=== PATIENT | female | born 1955 | race Caucasian/White ===

== ENCOUNTER 2017-08-25 14:54 | Inpatient (IN) | payer SELFPAY ==
[~2017-08-25] VITALS: Ht 142.2 cm; Wt 44.7 kg
[2017-08-25] VITALS (7 sets, daily range): BP systolic 85–122; BP diastolic 51–68
[~2017-08-25 14:54] MED LIST: ATEN50TA PO; ATENOLOL; DOXY100T19 PO; HCTZ; HYDR-3816 PO; HYDR-756 PO; HYDR25TA4 PO; HYDROCODONE
--- OUTSIDE RECORDS SUMMARY | 2017-08-25 15:07 | XMS REPORT ---
Author CHRISTIAN Lundy [facility] eClinicalWorks Address Unknown Phone Unavailable Care Team Providers Care Instant Print Operator Name Role Phone CHRISTIAN THOMAS CP Unavailable Allergies, Adverse Reactions, Alerts Substance Reaction Event Type N.K.D.A. Info Not Available Non Drug Allergy Problems Problem Type Condition Code Onset Dates Condition Status Assessment LLQ pain R10.32 Active Assessment Encounter for immunization Z23 Active Problem Unspecified arthropathy, site unspecified 716.90 Active Problem Depressive disorder, not elsewhere classified 311 Active Problem Back pain M54.9 Active Assessment Back pain M54.9 Active Assessment Hypokalemia E87.6 Active Problem Unspecified essential hypertension 401.9 Active Problem Postmenopausal bleeding N95.0 Active Medications Medication Code System Code Instructions Start Date End Date Status Dosage Multivitamins [facility] [address] Orally not defined Hydrocodone-Acetaminophen [facility] [address]-43 7.5-325 MG Orally November 26, 2014 1 tablet by Oral route every 4 hours PRN Zoloft [facility] [address]-73 25 MG May 04, 2014 1 tablet by Oral route 1 time per day Atenolol [facility] 46477647475 50 MG TAKE ONE TABLET BY MOUTH DAILY Hydrochlorothiazide [facility] [address]-16 25 MG TAKE ONE TABLET BY MOUTH DAILY Procedures Procedure Coding System Code Date FLUZONE QUAD (3 & UP)-SINGLE DOSE VIAL-SANOFI PASTEUR-2014 CPT-4 17127 Sep 27, 2015 SINGLE IMMUNIZATION ADMIN CPT-4 71814 Sep 27, 2015 BASIC METABOLIC PANEL CPT-4 85199 Sep 27, 2015 VENIPUNCT, ROUTINE* CPT-4 77654 Sep 27, 2015 Office Visit, Est Pt., Level 4 CPT-4 51846 Sep 27, 2015 Vital Signs Date/Time: Sep 27, 2015 Temperature 98.0 F Weight 90.8 lbs Height 56 in BMI 20.35 Index Blood Pressure Diastolic 88 mmHg Blood Pressure Systolic 184 mmHg Cardiac Monitoring Heart Rate 64 bpm Results Name Result Date Reference Range Unit Abnormality Flag ROUTINE VENIPUNCTURE BMP ----Calcium, Serum 9.9 43579735 8.7-10.3 mg/dL ----Sodium, Serum 131 [id number] 134-144 mmol/L L ----BUN/Creatinine Ratio 22 20150927 11-26 ----Chloride, Serum 95 71390333 97-108 mmol/L L ----Carbon Dioxide, Total 20 20150927 18-29 mmol/L ----Potassium, Serum 4.7 61426243 3.5-5.2 mmol/L ----eGFR If NonAfricn Am 67 [id number] >59 mL/min/1.73 ----eGFR If Africn Am 78 [id number] >59 mL/min/1.73 ----BUN 20 44904702 8-27 mg/dL ----Creatinine, Serum 0.92 [id number] 0.57-1.00 mg/dL ----Glucose, Serum 102 [id number] 65-99 mg/dL H Immunizations Vaccine Administration Date FLUEFRAIN QUAD (3 & UP)-SINGLE DOSE VIAL-SANOFI PASTEUR-2014Sep 27, 2015 Summary Purpose eClinicalWorks Submission
--- OUTSIDE RECORDS SUMMARY | 2017-08-25 15:07 | XMS REPORT ---
Author Author CHRISTIAN THOMAS [facility] eClinicalWorks Address Unknown Phone Unavailable Care Team Providers Care Tool Supervisor Name Role Phone CHRISTIAN THOMAS CP Unavailable Allergies No Known Allergies Problems Problem Type Condition Code Onset Dates Condition Status Problem Postmenopausal bleeding 627.1 Active Problem Counseling on substance use and abuse V65.42 Active Problem Routine gynecological examination V72.31 Active Problem Wheezing 786.07 Active Problem Allergic rhinitis, cause unspecified 477.9 Active Problem Unspecified arthropathy, site unspecified 716.90 Active Problem Depressive disorder, not elsewhere classified 311 Active Problem Special screening for malignant neoplasms, colon V76.51 Active Problem Need for prophylactic vaccination and inoculation, Influenza V04.81 Active Problem Fracture in accidental fall, cause unspecified E887 Active Problem Unspecified essential hypertension 401.9 Active Problem Screening for malignant neoplasm of the cervix V76.2 Active Problem Unspecified local infection of skin and subcutaneous tissue 686.9 Active Problem Special screening examination, human papillomavirus [HPV] V73.81 Active Problem Dermatophytosis of nail 110.1 Active Problem Unspecified breast screening V76.10 Active Medications Medication Code System Code Instructions Start Date End Date Status Dosage Hydrocodone-Acetaminophen [facility] [address]-11 7.5-325 MG Orally November 26, 2014 1 tablet by Oral route every 4 hours PRN Results No Known Results Summary Purpose eClinicalWorks Submission
--- OUTSIDE RECORDS SUMMARY | 2017-08-25 15:07 | XMS REPORT ---
Author Author CHRISTIAN THOMAS [facility] Address [address] [place] [address] Care Team Providers Care Chemical Educator Name Role Phone CHRISTIAN THOMAS Unavailable PROBLEMS Type Condition ICD9-CM Code TRR33-JA Code Onset Dates Condition Status SNOMED Code Problem Postmenopausal bleeding N95.0 Active 58992735 Problem Gastroesophageal reflux disease, esophagitis presence not specified K21.9 Active 114858324 Problem Reactive depression F32.9 Active 77715203 Problem Essential hypertension I10 Active 55497652 Problem Back pain M54.9 Active 474648147 Problem Elevated cholesterol E78.00 Active 40787213 Problem Cigarette nicotine dependence without complication F17.210 Active 08643184 ALLERGIES No Information SOCIAL HISTORY Never Assessed PLAN OF CARE VITAL SIGNS MEDICATIONS Medication Instructions Dosage Frequency Start Date End Date Duration Status Hydrocodone-Acetaminophen 7.5-325 MG Orally every 4 hours 1 tablet as needed 4h Nov, 28 days Active RESULTS No Results PROCEDURES No Known procedures IMMUNIZATIONS No Known Immunizations MEDICAL (GENERAL) HISTORY Type Description Date Medical History rheumatoid arthritis Medical History Arthritis Medical History polio Medical History hypertension Medical History depression Medical History ulcers as a child Surgical History cholecystectomy Surgical History Right shoulder Surgical History DnC Hospitalization History surgeries
--- OUTSIDE RECORDS SUMMARY | 2017-08-25 15:07 | XMS REPORT ---
Author Author CHRISTIAN THOMAS [facility] eClinicalWorks Address Unknown Phone Unavailable Care Team Providers Care Lock Installer Name Role Phone CHRISTIAN THOMAS CP Unavailable [...] Start Date End Date Status Dosage Hydrocodone-Acetaminophen [facility] [address]-71 7.5-325 MG Orally November 26, 2014 1 tablet by Oral route every 4 hours PRN Results No Known Results Summary Purpose eClinicalWorks Submission
--- OUTSIDE RECORDS SUMMARY | 2017-08-25 15:07 | XMS REPORT ---
Author Author CHRISTIAN THOMAS [facility] Address [address] [place] [address] Care Team Providers Care Motor Expert Name Role Phone CHRISTIAN THOMAS Unavailable PROBLEMS Type Condition ICD9-CM Code LDP34-DM Code Onset Dates Condition Status SNOMED Code Problem Postmenopausal bleeding N95.0 Active 97100381 Problem Gastroesophageal reflux disease, esophagitis presence not specified K21.9 Active 955014918 Problem Reactive depression F32.9 Active 09512281 Problem Essential hypertension I10 Active 85963107 Problem Back pain M54.9 Active 464785676 Problem Elevated cholesterol E78.00 Active 81832564 Problem Cigarette nicotine dependence without complication F17.210 Active 55266786 ALLERGIES No Information SOCIAL HISTORY Never Assessed PLAN OF CARE VITAL SIGNS MEDICATIONS Medication Instructions Dosage Frequency Start Date End Date Duration Status Hydrocodone-Acetaminophen 7.5-325 MG Orally every 4 hours 1 tablet as needed 4h January, 28 days Active RESULTS No Results PROCEDURES No Known procedures IMMUNIZATIONS No Known Immunizations MEDICAL (GENERAL) HISTORY Type Description Date Medical History rheumatoid arthritis Medical History Arthritis Medical History polio Medical History hypertension Medical History depression Medical History ulcers as a child Surgical History cholecystectomy Surgical History Right shoulder Surgical History DnC Hospitalization History surgeries
--- OUTSIDE RECORDS SUMMARY | 2017-08-25 15:07 | XMS REPORT ---
Author Author CHRISTIAN THOMAS [facility] Address [address] [place] [address] Care Team Providers Care Sports Marketing Coordinator Name Role Phone CHRISTIAN THOMAS Unavailable PROBLEMS Type Condition ICD9-CM Code FVF89-YT Code Onset Dates Condition Status SNOMED Code Problem Postmenopausal bleeding N95.0 Active 53877432 Problem Gastroesophageal reflux disease, esophagitis presence not specified K21.9 Active 702344727 Problem Reactive depression F32.9 Active 74183943 Problem Essential hypertension I10 Active 66341974 Problem Back pain M54.9 Active 636096747 Problem Elevated cholesterol E78.00 Active 44902736 Problem Cigarette nicotine dependence without complication F17.210 Active 10654027 ALLERGIES No Information SOCIAL HISTORY Never Assessed PLAN OF CARE VITAL SIGNS MEDICATIONS Unknown Medications RESULTS Name Result Date Reference Range LIPID PANEL 2017-02-22 Cholesterol, Total 182 100-199 Triglycerides 126 0-149 HDL Cholesterol 55 >39 VLDL Cholesterol Jimmie 25 5-40 LDL Cholesterol Calc 102 0-99 CMP 2017-02-22 Glucose, Serum 107 65-99 BUN 33 8-27 Creatinine, Serum 0.96 0.57-1.00 eGFR If NonAfricn Am 63 >59 eGFR If Africn Am 73 >59 BUN/Creatinine Ratio 34 12-28 Sodium, Serum 134 134-144 Potassium, Serum 4.0 3.5-5.2 Chloride, Serum 95 96-106 Carbon Dioxide, Total 20 18-29 Calcium, Serum 9.6 8.7-10.3 Protein, Total, Serum 7.3 6.0-8.5 Albumin, Serum 4.3 3.6-4.8 Globulin, Total 3.0 1.5-4.5 A/G Ratio 1.4 1.2-2.2 Bilirubin, Total 0.4 0.0-1.2 Alkaline Phosphatase, S 78 39-117 AST (SGOT) 17 0-40 ALT (SGPT) 15 0-32 PROCEDURES Procedure Date Ordered Result Body Site COMPREHEN METABOLIC PANEL February 22, 2017 LIPID PANEL February 22, 2017 VENIPUNCT, ROUTINE* February 22, 2017 IMMUNIZATIONS No Known Immunizations MEDICAL (GENERAL) HISTORY Type Description Date Medical History rheumatoid arthritis Medical History Arthritis Medical History polio Medical History hypertension Medical History depression Medical History ulcers as a child Surgical History cholecystectomy Surgical History Right shoulder Surgical History DnC Hospitalization History surgeries
--- OUTSIDE RECORDS SUMMARY | 2017-08-25 15:07 | XMS REPORT ---
Author Author MANSOOR CONLEY Organization [facility] Address [address] [place] [address] Care Team Providers Care Commercial Pilot Name Role Phone MANSOOR CONLEY Unavailable PROBLEMS Type Condition ICD9-CM Code ILU71-QT Code Onset Dates Condition Status SNOMED Code Problem Postmenopausal bleeding N95.0 Active 45396205 Problem Gastroesophageal reflux disease, esophagitis presence not specified K21.9 Active 651976678 Problem Reactive depression F32.9 Active 87974114 Problem Essential hypertension I10 Active 07778226 Problem Back pain M54.9 Active 436920195 Problem Elevated cholesterol E78.00 Active 52356085 Problem Cigarette nicotine dependence without complication F17.210 Active 84345602 ALLERGIES Unknown Allergies SOCIAL HISTORY No smoking Hx information available PLAN OF CARE VITAL SIGNS MEDICATIONS Medication Instructions Dosage Frequency Start Date End Date Duration Status Hydrocodone-Acetaminophen 7.5-325 MG Orally every 4 hours 1 tablet as needed 4h Sep, Active RESULTS No Results PROCEDURES No Known procedures IMMUNIZATIONS No Known Immunizations
--- OUTSIDE RECORDS SUMMARY | 2017-08-25 15:07 | XMS REPORT ---
Author Author CHRISTIAN THOMAS [facility] eClinicalWorks Address Unknown Phone Unavailable Care Team Providers Care Type Cutter Name Role Phone CHRISTIAN THOMAS CP Unavailable Allergies No Known Allergies Problems Problem Type Condition Code Onset Dates Condition Status Problem Unspecified arthropathy, site unspecified 716.90 Active Problem Depressive disorder, not elsewhere classified 311 Active Problem Back pain M54.9 Active Problem Unspecified essential hypertension 401.9 Active Problem Postmenopausal bleeding N95.0 Active Medications Medication Code System Code Instructions Start Date End Date Status Dosage Hydrocodone-Acetaminophen [facility] 78528852103 7.5-325 MG Orally every 4 hours as needed 1 tablet as needed Results No Known Results Summary Purpose eClinicalWorks Submission
--- OUTSIDE RECORDS SUMMARY | 2017-08-25 15:07 | XMS REPORT ---
Author Author CHRISTIAN THOMAS [facility] eClinicalWorks Address Unknown Phone Unavailable Care Team Providers Care Tariff Compiling Clerk Name Role Phone CHRISTIAN THOMAS CP Unavailable [...] Start Date End Date Status Dosage Hydrocodone-Acetaminophen [facility] 29850558407 7.5-325 MG Orally every 4 hours as needed 1 tablet as needed Results No Known Results Summary Purpose eClinicalWorks Submission
--- OUTSIDE RECORDS SUMMARY | 2017-08-25 15:08 | XMS REPORT ---
Author Author CHRISTIAN THOMAS [facility] Address [address] [place] [address] Care Team Providers Care Slot Operations Director Name Role Phone CHRISTIAN THOMAS Unavailable PROBLEMS Type Condition ICD9-CM Code VBV85-YN Code Onset Dates Condition Status SNOMED Code Problem Back pain M54.9 Active 122230161 Problem Unspecified arthropathy, site unspecified 716.90 Active 172602287 Problem Postmenopausal bleeding N95.0 Active 85481189 Problem Depressive disorder, not elsewhere classified 311 Active 63554974 Problem Unspecified essential hypertension 401.9 Active 26701527 ALLERGIES Unknown Allergies SOCIAL HISTORY No smoking Hx information available PLAN OF CARE VITAL SIGNS MEDICATIONS Medication Instructions Dosage Frequency Start Date End Date Duration Status Hydrocodone-Acetaminophen 7.5-325 MG Orally every 4 hours as needed 1 tablet as needed Active RESULTS No Results PROCEDURES No Known procedures IMMUNIZATIONS No Known Immunizations
--- OUTSIDE RECORDS SUMMARY | 2017-08-25 15:08 | XMS REPORT ---
Author Author CHRISTIAN THOMAS [facility] Address [address] [place] [address] Care Team Providers Care Cashiers Bussers Food Runners Name Role Phone CHRISTIAN THOMAS Unavailable PROBLEMS Type Condition ICD9-CM Code WMK05-XH Code Onset Dates Condition Status SNOMED Code Problem Postmenopausal bleeding N95.0 Active 93082491 Problem Gastroesophageal reflux disease, esophagitis presence not specified K21.9 Active 686973711 Problem Reactive depression F32.9 Active 18557417 Problem Essential hypertension I10 Active 53508059 Problem Back pain M54.9 Active 571036503 Problem Elevated cholesterol E78.00 Active 42419802 Problem Cigarette nicotine dependence without complication F17.210 Active 18613400 ALLERGIES Substance Reaction Event Type Date Status N.K.D.A. Unknown Non Drug Allergy Aug, Unknown SOCIAL HISTORY No smoking Hx information available PLAN OF CARE Activity Details Follow Up 3 Months Reason: VITAL SIGNS Height 56 in 2016-09-07 Weight 89.1 lbs 2016-09-07 Temperature 97.9 degrees Fahrenheit 2016-09-07 Heart Rate 60 bpm 2016-09-07 Respiratory Rate 18 2016-09-07 BMI 19.97 kg/m2 2016-09-07 Blood pressure systolic 152 mmHg 2016-09-07 Blood pressure diastolic 94 mmHg 2016-09-07 MEDICATIONS Medication Instructions Dosage Frequency Start Date End Date Duration Status Hydrocodone-Acetaminophen 7.5-325 MG Orally every 4 hours 1 tablet as needed 4h Aug, Aug, 4 days Active Atenolol 50 MG TAKE ONE TABLET BY MOUTH DAILY 30 Active Hydrochlorothiazide 25 MG TAKE ONE TABLET BY MOUTH DAILY 30 Active RESULTS Name Result Date Reference Range AMERITOX 2016-09-07 PROCEDURES Procedure Date Ordered Related Diagnosis Body Site COMPREHEN METABOLIC PANEL Sep 07, 2016 Office Visit, Est Pt., Level 3 Sep 07, 2016 FLUARIX QUAD P-FREE 3 AND UP .50 2015Sep 07, 2016 No Charge Sep 07, 2016 SINGLE IMMUNIZATION ADMIN Sep 07, 2016 IMMUNIZATIONS Vaccine Route Administration Date Status FLUARIX QUAD P-FREE 3 AND UP .50 2016 IM Intramuscular Sep 07, 2016 Administered
--- OUTSIDE RECORDS SUMMARY | 2017-08-25 15:08 | XMS REPORT ---
Author Author CHRISTIAN THOMAS [facility] eClinicalWorks Address Unknown Phone Unavailable Care Team Providers Care Parimutuel Ticket Checker Name Role Phone CHRISTIAN THOMAS CP Unavailable Allergies No Known Allergies Problems Problem Type Condition Code Onset Dates Condition Status Problem Unspecified arthropathy, site unspecified 716.90 Active Problem Depressive disorder, not elsewhere classified 311 Active Problem Back pain M54.9 Active Assessment Back pain M54.9 Active Problem Unspecified essential hypertension 401.9 Active Problem Postmenopausal bleeding N95.0 Active Medications Medication Code System Code Instructions Start Date End Date Status Dosage Hydrocodone-Acetaminophen [facility] [address]-26 7.5-325 MG Orally November 26, 2014 1 tablet by Oral route every 4 hours PRN Results No Known Results Summary Purpose eClinicalWorks Submission
--- OUTSIDE RECORDS SUMMARY | 2017-08-25 15:08 | XMS REPORT ---
Author Author CHRISTIAN THOMAS [facility] eClinicalWorks Address Unknown Phone Unavailable Care Team Providers Care Carton Maker Name Role Phone CHRISTIAN THOMAS CP Unavailable [...] Start Date End Date Status Dosage Hydrocodone-Acetaminophen [facility] 12306949131 7.5-325 MG Orally every 4 hours as needed 1 tablet as needed Results No Known Results Summary Purpose eClinicalWorks Submission
--- OUTSIDE RECORDS SUMMARY | 2017-08-25 15:08 | XMS REPORT ---
Author Author CHRISTIAN THOMAS [facility] Address [address] [place] [address] Care Team Providers Care New Accounts Banking Representative Name Role Phone CHRISTIAN THOMAS Unavailable PROBLEMS Type Condition ICD9-CM Code ZVM60-ER Code Onset Dates Condition Status SNOMED Code Problem Back pain M54.9 Active 824319926 Problem Unspecified arthropathy, site unspecified 716.90 Active 954048024 Problem Postmenopausal bleeding N95.0 Active 90843636 Assessment Back pain M54.9 Aug, Active 119755100 Problem Depressive disorder, not elsewhere classified 311 Active 83168693 Problem Unspecified essential hypertension 401.9 Active 77961450 ALLERGIES Unknown Allergies SOCIAL HISTORY No smoking Hx information available PLAN OF CARE VITAL SIGNS MEDICATIONS Medication Instructions Dosage Frequency Start Date End Date Duration Status Hydrocodone-Acetaminophen 7.5-325 MG Orally every 4 hours 1 tablet as needed 4h Aug, Aug, 03 days Active RESULTS No Results PROCEDURES No Known procedures IMMUNIZATIONS No Known Immunizations
--- OUTSIDE RECORDS SUMMARY | 2017-08-25 15:08 | XMS REPORT ---
Author Author CHRISTIAN THOMAS [facility] eClinicalWorks Address Unknown Phone Unavailable Care Team Providers Care Power Engineer Name Role Phone CHRISTIAN THOMAS CP Unavailable Allergies No Known Allergies Problems Problem Type Condition ICD-9 Code Onset Dates Condition Status Problem Postmenopausal [...] Start Date End Date Status Dosage Hydrocodone-Acetaminophen [facility] [address]-28 7.5-325 MG Orally November 26, 2014 1 tablet by Oral route every 4 hours PRN Results No Known Results Summary Purpose eClinicalWorks Submission
--- OUTSIDE RECORDS SUMMARY | 2017-08-25 15:08 | XMS REPORT ---
Author Author CHRISTIAN THOMAS [facility] eClinicalWorks Address Unknown Phone Unavailable Care Team Providers Care Senior Publications Specialist Name Role Phone CHRISTIAN THOMAS CP Unavailable [...] Instructions Start Date End Date Status Dosage Hydrochlorothiazide [facility] [address]-97 25 MG TAKE ONE TABLET BY MOUTH DAILY Results No Known Results Summary Purpose eClinicalWorks Submission
--- OUTSIDE RECORDS SUMMARY | 2017-08-25 15:08 | XMS REPORT ---
Author Author CHRISTIAN THOMAS [facility] eClinicalWorks Address Unknown Phone Unavailable Care Team Providers Care Manager Services Name Role Phone CHRISTIAN THOMAS CP Unavailable [...] Date End Date Status Dosage Hydrocodone-Acetaminophen [facility] [address]-04 7.5-325 MG Orally November 26, 2014 1 tablet by Oral route every 4 hours PRN Results No Known Results Summary Purpose eClinicalWorks Submission
--- OUTSIDE RECORDS SUMMARY | 2017-08-25 15:08 | XMS REPORT ---
Author Author CHRISTIAN THOMAS [facility] Address [address] [place] [address] Care Team Providers Care Cook Boat Name Role Phone CHRISTIAN THOMAS Unavailable PROBLEMS Type Condition ICD9-CM Code TYX68-WA Code Onset Dates Condition Status SNOMED Code Problem Postmenopausal bleeding N95.0 Active 11295687 Problem Gastroesophageal reflux disease, esophagitis presence not specified K21.9 Active 001600516 Problem Reactive depression F32.9 Active 64474029 Problem Essential hypertension I10 Active 85384341 Problem Back pain M54.9 Active 839280691 Problem Elevated cholesterol E78.00 Active 28263655 Problem Cigarette nicotine dependence without complication F17.210 Active 76181062 ALLERGIES No Information SOCIAL HISTORY Never Assessed PLAN OF CARE VITAL SIGNS MEDICATIONS Medication Instructions Dosage Frequency Start Date End Date Duration Status Lovastatin 40 mg Orally Once a day 1 tablet with a meal 24h Feb, 30 day(s) Active RESULTS No Results PROCEDURES No Known procedures IMMUNIZATIONS No Known Immunizations MEDICAL (GENERAL) HISTORY Type Description Date Medical History rheumatoid arthritis Medical History Arthritis Medical History polio Medical History hypertension Medical History depression Medical History ulcers as a child Surgical History cholecystectomy Surgical History Right shoulder Surgical History DnC Hospitalization History surgeries
--- OUTSIDE RECORDS SUMMARY | 2017-08-25 15:08 | XMS REPORT ---
Author Author CHRISTIAN THOMAS [facility] Address [address] [place] [address] Care Team Providers Care School Age Lead Teacher Name Role Phone CHRISTIAN THOMAS Unavailable PROBLEMS Type Condition ICD9-CM Code ADL59-AX Code Onset Dates Condition Status SNOMED Code Problem Postmenopausal bleeding N95.0 Active 37873140 Problem Gastroesophageal reflux disease, esophagitis presence not specified K21.9 Active 107119329 Problem Reactive depression F32.9 Active 51961396 Problem Essential hypertension I10 Active 45691208 Problem Back pain M54.9 Active 186426408 Problem Elevated cholesterol E78.00 Active 32747657 Problem Cigarette nicotine dependence without complication F17.210 Active 20275067 ALLERGIES No Information SOCIAL HISTORY Never Assessed PLAN OF CARE VITAL SIGNS MEDICATIONS Unknown Medications RESULTS Name Result Date Reference Range AMERITOX 2016-10-26 PROCEDURES Procedure Date Ordered Result Body Site No Charge Oct 26, 2016 IMMUNIZATIONS No Known Immunizations MEDICAL (GENERAL) HISTORY Type Description Date Medical History rheumatoid arthritis Medical History Arthritis Medical History polio Medical History hypertension Medical History depression Medical History ulcers as a child Surgical History cholecystectomy Surgical History Right shoulder Surgical History DnC Hospitalization History surgeries
--- OUTSIDE RECORDS SUMMARY | 2017-08-25 15:08 | XMS REPORT ---
Author Author CHRISTIAN THOMAS [facility] Address [address] [place] [address] Care Team Providers Care Material Worker Name Role Phone CHRISTIAN THOMAS Unavailable PROBLEMS Type Condition ICD9-CM Code UHE53-OC Code Onset Dates Condition Status SNOMED Code Problem Postmenopausal bleeding N95.0 Active 39893354 Problem Gastroesophageal reflux disease, esophagitis presence not specified K21.9 Active 054766681 Problem Reactive depression F32.9 Active 28146415 Problem Essential hypertension I10 Active 44612663 Problem Back pain M54.9 Active 230636344 Problem Elevated cholesterol E78.00 Active 98653616 Problem Cigarette nicotine dependence without complication F17.210 Active 00515980 ALLERGIES No Known Allergies SOCIAL HISTORY No smoking Hx information available PLAN OF CARE VITAL SIGNS MEDICATIONS No Known Medications RESULTS No Results PROCEDURES No Known procedures IMMUNIZATIONS No Known Immunizations
--- OUTSIDE RECORDS SUMMARY | 2017-08-25 15:08 | XMS REPORT ---
Author Author CHRISTIAN THOMAS [facility] Address [address] [place] [address] Care Team Providers Care Legal Instruments Examiner Name Role Phone CHRISTIAN THOMAS Unavailable PROBLEMS Type Condition ICD9-CM Code NNN88-IA Code Onset Dates Condition Status SNOMED Code Problem Postmenopausal bleeding N95.0 Active 18900667 Problem Gastroesophageal reflux disease, esophagitis presence not specified K21.9 Active 247917098 Problem Reactive depression F32.9 Active 88179734 Problem Essential hypertension I10 Active 48892237 Problem Back pain M54.9 Active 027987423 Problem Elevated cholesterol E78.00 Active 97733510 Problem Cigarette nicotine dependence without complication F17.210 Active 46265848 ALLERGIES No Known Allergies SOCIAL HISTORY No smoking Hx information available PLAN OF CARE VITAL SIGNS MEDICATIONS Medication Instructions Dosage Frequency Start Date End Date Duration Status Hydrocodone-Acetaminophen 7.5-325 MG Orally every 4 hours 1 tablet as needed 4h Aug, Aug, 4 days Active RESULTS No Results PROCEDURES No Known procedures IMMUNIZATIONS No Known Immunizations
--- OUTSIDE RECORDS SUMMARY | 2017-08-25 15:08 | XMS REPORT ---
Author Author CHRISTIAN THOMAS [facility] Address [address] [place] [address] Care Team Providers Care Boiler Setter Name Role Phone CHRISTIAN THOMAS Unavailable PROBLEMS Type Condition ICD9-CM Code [id number] Code Onset Dates Condition Status SNOMED Code Problem Postmenopausal bleeding N95.0 Active 77764426 Problem Gastroesophageal reflux disease, esophagitis presence not specified K21.9 Active 908912972 Problem Reactive depression F32.9 Active 37159373 Problem Essential hypertension I10 Active 31318157 Problem Back pain M54.9 Active 685668933 Problem Elevated cholesterol E78.00 Active 96192929 Problem Cigarette nicotine dependence without complication F17.210 Active 51830661 ALLERGIES No Information SOCIAL HISTORY Never Assessed PLAN OF CARE VITAL SIGNS MEDICATIONS Medication Instructions Dosage Frequency Start Date End Date Duration Status Atenolol 50 mg Orally Once a day 1 tablet 24h 30 days Active Hydrochlorothiazide 25 MG Orally Once a day 1 tablet 24h 30 days Active RESULTS No Results PROCEDURES No Known procedures IMMUNIZATIONS No Known Immunizations MEDICAL (GENERAL) HISTORY Type Description Date Medical History rheumatoid arthritis Medical History Arthritis Medical History polio Medical History hypertension Medical History depression Medical History ulcers as a child Surgical History cholecystectomy Surgical History Right shoulder Surgical History DnC Hospitalization History surgeries
--- OUTSIDE RECORDS SUMMARY | 2017-08-25 15:08 | XMS REPORT ---
Author Author CHRISTIAN THOMAS [facility] Address [address] [place] [address] Care Team Providers Care Telesales Professional Name Role Phone CHRISTIAN THOMAS Unavailable PROBLEMS Type Condition ICD9-CM Code IWN75-SH Code Onset Dates Condition Status SNOMED Code Problem Postmenopausal bleeding N95.0 Active 97836034 Problem Gastroesophageal reflux disease, esophagitis presence not specified K21.9 Active 734401752 Problem Reactive depression F32.9 Active 48978060 Problem Essential hypertension I10 Active 09505237 Problem Back pain M54.9 Active 152652240 Problem Elevated cholesterol E78.00 Active 93675347 Problem Cigarette nicotine dependence without complication F17.210 Active 83102690 ALLERGIES No Information SOCIAL HISTORY Never Assessed PLAN OF CARE VITAL SIGNS MEDICATIONS Medication Instructions Dosage Frequency Start Date End Date Duration Status Hydrocodone-Acetaminophen 7.5-325 MG Orally every 4 hours 1 tablet as needed 4h 13 Oct, 2016 Active RESULTS No Results PROCEDURES No Known procedures IMMUNIZATIONS No Known Immunizations MEDICAL (GENERAL) HISTORY Type Description Date Medical History rheumatoid arthritis Medical History Arthritis Medical History polio Medical History hypertension Medical History depression Medical History ulcers as a child Surgical History cholecystectomy Surgical History Right shoulder Surgical History DnC Hospitalization History surgeries
--- OUTSIDE RECORDS SUMMARY | 2017-08-25 15:08 | XMS REPORT ---
Author Author CHRISTIAN THOMAS [facility] eClinicalWorks Address Unknown Phone Unavailable Care Team Providers Care Asthma Educator Name Role Phone CHRISTIAN THOMAS CP Unavailable [...] Start Date End Date Status Dosage Hydrocodone-Acetaminophen [facility] [address]-52 7.5-325 MG Orally November 26, 2014 1 tablet by Oral route every 4 hours PRN Results No Known Results Summary Purpose eClinicalWorks Submission
--- OUTSIDE RECORDS SUMMARY | 2017-08-25 15:09 | XMS REPORT ---
Author Author CHRISTIAN THOMAS [facility] Address [address] [place] [address] Care Team Providers Care Seismic Engineer Name Role Phone CHRISTIAN THOMAS Unavailable PROBLEMS Type Condition ICD9-CM Code UHL23-ZR Code Onset Dates Condition Status SNOMED Code Problem Postmenopausal bleeding N95.0 Active 37833787 Problem Gastroesophageal reflux disease, esophagitis presence not specified K21.9 Active 597239728 Problem Reactive depression F32.9 Active 98011665 Problem Essential hypertension I10 Active 93549257 Problem Back pain M54.9 Active 709924204 Problem Elevated cholesterol E78.00 Active 95713871 Problem Cigarette nicotine dependence without complication F17.210 Active 36549137 ALLERGIES No Information SOCIAL HISTORY Never Assessed [...]
--- OUTSIDE RECORDS SUMMARY | 2017-08-25 15:09 | XMS REPORT ---
Author NORAH Rush [facility] eClinicalWorks Address Unknown Phone Unavailable Care Team Providers Care Proofer Black And White Name Role Phone NORAH YEBOAH CP Unavailable Allergies, Adverse Reactions, Alerts Substance Reaction Event Type N.K.D.A. Info Not Available Non Drug Allergy Problems Problem Type Condition ICD-9 Code Onset [...] in accidental fall, cause unspecified E887 Active Assessment Pain in the abdomen 789.00 Active Problem Unspecified essential hypertension 401.9 Active Problem Screening for malignant neoplasm of the cervix V76.2 Active Problem Unspecified local infection of skin and subcutaneous tissue 686.9 Active Problem Special screening examination, human papillomavirus [HPV] V73.81 Active Problem Dermatophytosis of nail 110.1 Active Problem Unspecified breast screening V76.10 Active Medications Medication Code System Code Instructions Start Date End Date Status Dosage Hydrochlorothiazide [facility] [address]-73 25 MG TAKE ONE TABLET BY MOUTH DAILY Bactrim DS [facility] [address]-15 800-160 MG Orally 2 times a day May 25, 2015 Jun 01, 2015 1 tablet Atenolol [facility] [address]-82 50 MG TAKE ONE TABLET BY MOUTH DAILY Hydrocodone-Acetaminophen [facility] [address]-19 7.5-325 MG Orally November 26, 2014 1 tablet by Oral route every 4 hours PRN Zoloft [facility] [address]-80 25 MG May 04, 2014 1 tablet by Oral route 1 time per day Procedures Procedure Coding System Code Date Office Visit, Est Pt., Level 3 CPT-4 14428 May 25, 2015 URINE CULTURE/COLONY COUNT CPT-4 11324 May 25, 2015 URINALYSIS, AUTO, W/O SCOPE CPT-4 89338 May 25, 2015 Vital Signs Date/Time: May 25, 2015 Temperature 98.8 F Weight 92 lbs Height 56 in BMI 20.62 Index Blood Pressure Diastolic 74 mmHg Blood Pressure Systolic 146 mmHg Cardiac Monitoring Heart Rate 80 bpm Results Name Result Date Reference Range Unit Abnormality Flag UA LONG DIP (IN HOUSE) Summary Purpose eClinicalWorks Submission
--- OUTSIDE RECORDS SUMMARY | 2017-08-25 15:09 | XMS REPORT ---
Author Author CHRISTIAN THOMAS [facility] eClinicalWorks Address Unknown Phone Unavailable Care Team Providers Care Draw Machine Operator Name Role Phone CHRISTIAN THOMAS CP [...] Instructions Start Date End Date Status Dosage Zoloft [facility] [address]-20 25 MG Orally Once a day May 04, 2014 1 tablet Multivitamins [facility] [address] Orally not defined Hydrocodone-Acetaminophen [facility] 77337896982 7.5-325 MG Orally every 4 hrs 1 tablet as needed Hydrochlorothiazide [facility] 74424198845 25 MG TAKE ONE TABLET BY MOUTH DAILY Atenolol [facility] 59365987057 50 MG TAKE ONE TABLET BY MOUTH DAILY Procedures Procedure Coding System Code Date Office Visit, Est Pt., Level 2 CPT-4 29508 April 13, 2016 Vital Signs Date/Time: April 13, 2016 Cardiac Monitoring Heart Rate 77 bpm Weight 83.9 lbs Height 56 in BMI 18.81 Index Blood Pressure Diastolic 83 mmHg Blood Pressure Systolic 157 mmHg Results No Known Results Summary Purpose eClinicalWorks Submission
--- OUTSIDE RECORDS SUMMARY | 2017-08-25 15:09 | XMS REPORT ---
Author Author CHRISTIAN THOMAS [facility] eClinicalWorks Address Unknown Phone Unavailable Care Team Providers Care Recreation Director Name Role Phone CHRISTIAN THOMAS CP Unavailable [...] Instructions Start Date End Date Status Dosage Atenolol [facility] [address]-60 50 MG TAKE ONE TABLET BY MOUTH DAILY Results No Known Results Summary Purpose eClinicalWorks Submission
--- OUTSIDE RECORDS SUMMARY | 2017-08-25 15:09 | XMS REPORT | Continuity of Care Document ---
Author Author [facility] Address Unknown Phone Unavailable Allergies Active Description Code Type Severity Reaction Onset Reported/Identified Relationship to Patient Clinical Status Yes morphine [id number] Drug Allergy Unknown N/A 01/01/2009 Medications Problems Date Dx Coded Attending Type Code Diagnosis Diagnosed By 06/12/2011 466.0 Acute Bronchitis 06/12/2011 845.10 UNSPECIFIED SITE OF FOOT SPRAIN 06/12/2011 CHRISTIAN THOMAS MD 466.0 Acute Bronchitis 06/12/2011 CHRISTIAN THOMAS MD 845.10 UNSPECIFIED SITE OF FOOT SPRAIN 06/12/2011 466.0 Acute Bronchitis 06/12/2011 845.10 UNSPECIFIED SITE OF FOOT SPRAIN 06/12/2011 CHRISTIAN THOMAS MD 466.0 Acute Bronchitis 06/12/2011 CHRISTIAN THOMAS MD 845.10 UNSPECIFIED SITE OF FOOT SPRAIN 06/12/2011 CHRISTIAN THOMAS MD 466.0 Acute Bronchitis 06/12/2011 CHRISTIAN THOMAS MD 845.10 UNSPECIFIED SITE OF FOOT SPRAIN 06/12/2011 CHRISTIAN THOMAS MD 466.0 Acute Bronchitis 06/12/2011 CHRISTIAN THOMAS MD 845.10 UNSPECIFIED SITE OF FOOT SPRAIN 06/12/2011 CHRISTIAN THOMAS MD 466.0 Acute Bronchitis 06/12/2011 CHRISTIAN THOMAS MD 845.10 UNSPECIFIED SITE OF FOOT SPRAIN 06/12/2011 CHRISTIAN THOMAS MD 466.0 Acute Bronchitis 06/12/2011 CHRISTIAN THOMAS MD 845.10 UNSPECIFIED SITE OF FOOT SPRAIN 06/12/2011 DEBO NAIR APRN 466.0 Acute Bronchitis 06/12/2011 DEBO NAIR APRN 845.10 UNSPECIFIED SITE OF FOOT SPRAIN 06/12/2011 CHRISTIAN THOMAS MD 466.0 Acute Bronchitis 06/12/2011 CHRISTIAN TOHMAS MD 845.10 UNSPECIFIED SITE OF FOOT SPRAIN 06/12/2011 DEBO NAIR APRN 466.0 Acute Bronchitis 06/12/2011 DEBO NAIR APRN 845.10 UNSPECIFIED SITE OF FOOT SPRAIN 09/22/2011 716.90 UNSPECIFIED ARTHROPATHY SITE UNSPECIFIED 09/22/2011 CHRISTIAN THOMAS MD 716.90 UNSPECIFIED ARTHROPATHY SITE UNSPECIFIED 09/22/2011 716.90 UNSPECIFIED ARTHROPATHY SITE UNSPECIFIED 09/22/2011 CHRISTIAN THOMAS MD 716.90 UNSPECIFIED ARTHROPATHY SITE UNSPECIFIED 09/22/2011 CHRISTIAN THOMAS MD 716.90 UNSPECIFIED ARTHROPATHY SITE UNSPECIFIED 09/22/2011 CHRISTIAN THOMAS MD 716.90 UNSPECIFIED ARTHROPATHY SITE UNSPECIFIED 09/22/2011 MARTHA YOUSIF, CHRISTIAN 716.90 UNSPECIFIED ARTHROPATHY SITE UNSPECIFIED 09/22/2011 CHRISTIAN THOMAS MD 716.90 UNSPECIFIED ARTHROPATHY SITE UNSPECIFIED 09/22/2011 DEBO NAIR APRN 716.90 UNSPECIFIED ARTHROPATHY SITE UNSPECIFIED 09/22/2011 CHRISTIAN THOMAS MD 716.90 UNSPECIFIED ARTHROPATHY SITE UNSPECIFIED 09/22/2011 DEBO NAIR APRN 716.90 UNSPECIFIED ARTHROPATHY SITE UNSPECIFIED 10/08/2011 E887 FRACTURE CAUSE UNSPECIFIED 10/08/2011 CHRISTIAN THOMAS MD E887 FRACTURE CAUSE UNSPECIFIED 10/08/2011 E887 FRACTURE CAUSE UNSPECIFIED 10/08/2011 CHRISTIAN THOMAS MD E887 FRACTURE CAUSE UNSPECIFIED 10/08/2011 CHRISTIAN THOMAS MD E887 FRACTURE CAUSE UNSPECIFIED 10/08/2011 CHRISTIAN THOMAS MD E887 FRACTURE CAUSE UNSPECIFIED 10/08/2011 CHRISTIAN THOMAS MD E887 FRACTURE CAUSE UNSPECIFIED 10/08/2011 CHRISTIAN THOMAS MD E887 FRACTURE CAUSE UNSPECIFIED 10/08/2011 DEBO NAIR APRN E887 FRACTURE CAUSE UNSPECIFIED 10/08/2011 CHRISTIAN THOMAS MD E887 FRACTURE CAUSE UNSPECIFIED 10/08/2011 DEBO NAIR APRN E887 FRACTURE CAUSE UNSPECIFIED 02/11/2012 110.1 DERMATOPHYTOSIS OF NAIL 02/11/2012 686.9 Unspecified Local Infection Of Skin And Subcutaneous Tissue 02/11/2012 CHRISTIAN THOMAS MD 110.1 DERMATOPHYTOSIS OF NAIL 02/11/2012 CHRISTIAN THOMAS MD 686.9 Unspecified Local Infection Of Skin And Subcutaneous Tissue 02/11/2012 110.1 DERMATOPHYTOSIS OF NAIL 02/11/2012 686.9 Unspecified Local Infection Of Skin And Subcutaneous Tissue 02/11/2012 CHRISTIAN THOMAS MD 110.1 DERMATOPHYTOSIS OF NAIL 02/11/2012 CHRISTIAN THOMAS MD 686.9 Unspecified Local Infection Of Skin And Subcutaneous Tissue 02/11/2012 CHRISTIAN THOMAS MD 110.1 DERMATOPHYTOSIS OF NAIL 02/11/2012 CHRISTIAN THOMAS MD 686.9 Unspecified Local Infection Of Skin And Subcutaneous Tissue 02/11/2012 CHRISTIAN THOMAS MD 110.1 DERMATOPHYTOSIS OF NAIL 02/11/2012 CHRISTIAN THOMAS MD 686.9 Unspecified Local Infection Of Skin And Subcutaneous Tissue 02/11/2012 CHRISTIAN THOMAS MD 110.1 DERMATOPHYTOSIS OF NAIL 02/11/2012 CHRISTIAN THOMAS MD 686.9 Unspecified Local Infection Of Skin And Subcutaneous Tissue 02/11/2012 CHRISTIAN THOMAS MD 110.1 DERMATOPHYTOSIS OF NAIL 02/11/2012 CHRISTIAN THOMAS MD 686.9 Unspecified Local Infection Of Skin And Subcutaneous Tissue 02/11/2012 DEBO NIAR APRN A 110.1 DERMATOPHYTOSIS OF NAIL 02/11/2012 DBEO NAIR APRN A 686.9 Unspecified Local Infection Of Skin And Subcutaneous Tissue 02/11/2012 CHRISTIAN THOMAS MD 110.1 DERMATOPHYTOSIS OF NAIL 02/11/2012 CHRISTIAN THOMAS MD 686.9 Unspecified Local Infection Of Skin And Subcutaneous Tissue 02/11/2012 DEBO NAIR APRN A 110.1 DERMATOPHYTOSIS OF NAIL 02/11/2012 DEBO NAIR APRN A 686.9 Unspecified Local Infection Of Skin And Subcutaneous Tissue 03/28/2012 477.9 ALLERGIC RHINITIS CAUSE UNSPECIFIED 03/28/2012 786.07 WHEEZING 03/28/2012 CHRISTIAN THOMAS MD 477.9 ALLERGIC RHINITIS CAUSE UNSPECIFIED 03/28/2012 CHRISTIAN THOMAS MD 786.07 WHEEZING 03/28/2012 477.9 ALLERGIC RHINITIS CAUSE UNSPECIFIED 03/28/2012 786.07 WHEEZING 03/28/2012 MARTHA YOUSIF, CHRISTIAN 477.9 ALLERGIC RHINITIS CAUSE UNSPECIFIED 03/28/2012 MARTHA YOUSIF, CHRISTIAN 786.07 WHEEZING 03/28/2012 MARTHA YOUSIF, CHRISTIAN 477.9 ALLERGIC RHINITIS CAUSE UNSPECIFIED 03/28/2012 MARTHA YOUSIF, CHRISTIAN 786.07 WHEEZING 03/28/2012 MARTHA YOUSIF, CHRISTIAN 477.9 ALLERGIC RHINITIS CAUSE UNSPECIFIED 03/28/2012 MARTHA YOUSIF, CHRISTIAN 786.07 WHEEZING 03/28/2012 MARTHA YOUSIF, CHRISTIAN 477.9 ALLERGIC RHINITIS CAUSE UNSPECIFIED 03/28/2012 MARTHA YOUSIF, CHRISTIAN 786.07 WHEEZING 03/28/2012 MARTHA YOUSIF, CHRISTIAN 477.9 ALLERGIC RHINITIS CAUSE UNSPECIFIED 03/28/2012 MARTHA YOUSIF, CHRISTIAN 786.07 WHEEZING 03/28/2012 DEBO NAIR APRN 477.9 ALLERGIC RHINITIS CAUSE UNSPECIFIED 03/28/2012 DEBO NAIR APRN 786.07 WHEEZING 03/28/2012 MARTHA YOUSIF, CHRISTIAN 477.9 ALLERGIC RHINITIS CAUSE UNSPECIFIED 03/28/2012 MARTHA YOUSIF, CHRISTIAN 786.07 WHEEZING 03/28/2012 DEBO NAIR APRN 477.9 ALLERGIC RHINITIS CAUSE UNSPECIFIED 03/28/2012 DEBO NAIR APRN 786.07 WHEEZING 02/09/2013 401.9 UNSPECIFIED ESSENTIAL HYPERTENSION 02/09/2013 MARTHA YOUSIF, CHRISTIAN 401.9 UNSPECIFIED ESSENTIAL HYPERTENSION 02/09/2013 MARTHA YOUSIF, CHRISTIAN 401.9 UNSPECIFIED ESSENTIAL HYPERTENSION 02/09/2013 MARTHA YOUSIF, CHRISTIAN 401.9 UNSPECIFIED ESSENTIAL HYPERTENSION 02/09/2013 MARTHA YOUSIF, CHRISTIAN 401.9 UNSPECIFIED ESSENTIAL HYPERTENSION 02/09/2013 MARTHA YOUSIF, CHRISTIAN 401.9 UNSPECIFIED ESSENTIAL HYPERTENSION 02/09/2013 DEBO NAIR APRN 401.9 UNSPECIFIED ESSENTIAL HYPERTENSION 02/09/2013 MARTHA YOUSIF, CHRISTIAN 401.9 UNSPECIFIED ESSENTIAL HYPERTENSION 02/09/2013 DEBO NAIR APRN 401.9 UNSPECIFIED ESSENTIAL HYPERTENSION 05/09/2013 CHRISTIAN THOMAS MD 311 DEPRESSIVE DISORDER NOT ELSEWHERE CLASSIFIED 05/09/2013 CHRISTIAN THOMAS MD 311 DEPRESSIVE DISORDER NOT ELSEWHERE CLASSIFIED 05/09/2013 CHRISTIAN THOMAS MD 311 DEPRESSIVE DISORDER NOT ELSEWHERE CLASSIFIED 05/09/2013 CHRISTIAN THOMAS MD 311 DEPRESSIVE DISORDER NOT ELSEWHERE CLASSIFIED 05/09/2013 CHRISTIAN THOMAS MD 311 DEPRESSIVE DISORDER NOT ELSEWHERE CLASSIFIED 05/09/2013 DEBO NAIR APRN 311 DEPRESSIVE DISORDER NOT ELSEWHERE CLASSIFIED 05/09/2013 CHRISTIAN THOMAS MD 311 DEPRESSIVE DISORDER NOT ELSEWHERE CLASSIFIED 05/09/2013 DEBO NAIR APRN 311 DEPRESSIVE DISORDER NOT ELSEWHERE CLASSIFIED 06/28/2014 CHRISTIAN THOMAS MD V04.81 FLU SHOT 06/28/2014 DEBO NAIR APRN A V04.81 FLU SHOT 06/28/2014 CHRISTIAN THOMAS MD V04.81 FLU SHOT 06/28/2014 DEBO NAIR APRN V04.81 FLU SHOT 09/11/2014 DEBO NAIR APRN 627.1 POSTMENOPAUSAL BLEEDING 09/11/2014 DEBO NAIR APRN V65.42 COUNSELING - SMOKING CESSATION 09/11/2014 DEBO NAIR APRN V72.31 SUPERVISOR PHOTOENGRAVING EXAM, ROUTINE 09/11/2014 DEBO NAIR APRN V73.81 HPV SCREENING 09/11/2014 DEBO NAIR APRN V76.10 BREAST CANCER SCREENING 09/11/2014 DEBO NAIR APRN V76.2 CERVICAL CANCER SCREENING (PAP SMEAR) 09/11/2014 DEBO NAIR APRN V76.51 COLON CANCER SCREENING 09/11/2014 CHRISTIAN THOMAS MD 627.1 POSTMENOPAUSAL BLEEDING 09/11/2014 CHRISTAIN THOMAS MD V65.42 COUNSELING - SMOKING CESSATION 09/11/2014 CHRISTIAN THOMAS MD V72.31 SUPERVISOR PHOTOENGRAVING EXAM, ROUTINE 09/11/2014 CHRISTIAN THOMAS MD V73.81 HPV SCREENING 09/11/2014 CHRISTIAN THOMAS MD V76.10 BREAST CANCER SCREENING 09/11/2014 CHRISTIAN THOMAS MD V76.2 CERVICAL CANCER SCREENING (PAP SMEAR) 09/11/2014 CHRISTIAN THOMAS MD V76.51 COLON CANCER SCREENING 09/11/2014 DEBO NAIR APRN 627.1 POSTMENOPAUSAL BLEEDING 09/11/2014 DEBO NAIR APRN V65.42 COUNSELING - SMOKING CESSATION 09/11/2014 JOANIE EDWARDS DEBO A V72.31 SUPERVISOR PHOTOENGRAVING EXAM, ROUTINE 09/11/2014 JOANIE EDWARDS DEBO A V73.81 HPV SCREENING 09/11/2014 JOANIE EDWARDS DEBO A V76.10 BREAST CANCER SCREENING 09/11/2014 JOANIE EDWARDS DEBO A V76.2 CERVICAL CANCER SCREENING (PAP SMEAR) 09/11/2014 JOANIE SPINNER FRAME, DEBO A V76.51 COLON CANCER SCREENING 11/20/2014 Ot 457.1 11/20/2014 Ot 782.1 07/23/2015 GERDA YOUSIF, JUAQUIN [place] Ot N95.0 08/01/2015 YESSY PEDROZAHERBER Ot N71.9 08/01/2015 YESSY HERBER PEDROZA Ot N95.0 08/01/2015 FENTREASURE PEDROZAHERBER Ot N95.2 08/01/2015 YESSY PEDROZAHERBER Ot R93.8 10/28/2015 YESSY PEDROZAHERBER Ot E87.1 10/28/2015 YESSY PEDROZA HERBER [place] Ot E87.6 Procedures Code Description [place] [address] ROUTINE VENIPUNCTURE 07/18/2012 Podiatry Eugenie Vallejo 07/18/2012 95443 CMP 07/18/2012 55490 LIPID PANEL 07/18 4374722 GFR CALC (RESULT ONLY) 07/18/2012 64600 ROUTINE VENIPUNCTURE 05/04/2014 02361 CMP 05/04/2014 35301 LIPID PANEL 05/04 1707789 GFR CALC (RESULT ONLY) 05/04/2014 08126 ROUTINE VENIPUNCTURE 06/28/2014 9038855 GFR CALC (RESULT ONLY) 06/28/2014 36659 BMP 06/28/2014 11112 MAMMOGRAM, SCREENING 09/11/2014 Q0091 PAP SMEAR OBTAIN SMEAR 09/11/2014 33812 HEMOCCULT 2013 78665 PAP SMEAR 2013 60233 XRAY HIP LEFT UNILATERAL MIN 2 VIEWS 10/01/2014 89302 ENDOMETRIAL BIOPSY 10/03/2014 Results Encounters ACCT No. Visit Date/Time Discharge Status Pt. Type Provider Facility Loc./Unit Complaint [id number] 10/03/2014 10:33:00 10/03/2014 23: 59:59 CLS Outpatient DEBO NAIR APRN [id number] 09/28/2014 13:58:00 09/28/2014 23: 59:59 CLS Outpatient CHRISTIAN THOMAS MD [id number] 09/11/2014 14:25:00 09/11/2014 23: 59:59 CLS Outpatient DEBO NAIR APRN [id number] 06/28/2014 13:57:00 06/28/2014 23: 59:59 CLS Outpatient CHRISTIAN THOMAS MD [id number] 05/04/2014 14:20:00 05/04/2014 23: 59:59 CLS Outpatient CHRISTIAN THOMAS MD [id number] 01/15/2014 15:38:00 01/15/2014 23: 59:59 CLS Outpatient CHRISTIAN THOMAS MD [id number] 09/28/2013 14:21:00 09/28/2013 23: 59:59 CLS Outpatient CHRISTIAN THOMAS MD [id number] 05/09/2013 11:14:00 05/09/2013 23: 59:59 CLS Outpatient CHRISTIAN THOMAS MD [id number] 07/18/2012 10:11:00 07/18/2012 23:59 :59 CLS Outpatient [id number] 07/18/2012 10:11:00 07/18/2012 23: 59:59 CLS Outpatient CHRISTIAN THOMAS MD [id number] 02/09/2013 16:48:00 Document Registration [id number] 08/01/2015 09:02:00 2014 16:10:00 DIS Outpatient HERBER KRISHNAMURTHY DO [facility] [id number] 07/30/2015 09:46:00 2014 23:59:59 CLS Outpatient HERBER KRISHNAMURTHY DO [facility] [id number] 07/26/2015 15:26:00 2014 23:59:59 CLS Outpatient HERBER KRISHNAMURTHY DO [facility] PREOP [id number] 06/28/2015 10:55:00 2014 23:59:59 CLS Outpatient JUAQUIN LORENZ MD [facility] [id number] 10/08/2014 10:15:00 2014 23:59:59 CLS Preadmit DEBO NAIR APRN [facility] [id number] 11/20/2014 21:18:00 Document Registration
--- OUTSIDE RECORDS SUMMARY | 2017-08-25 15:09 | XMS REPORT ---
Author Author NORAH YEBOAH [facility] eClinicalWorks Address Unknown Phone Unavailable Care Team Providers Care Finisher Card Tender Name Role Phone NORAH YEBOAH CP Unavailable Allergies No Known Allergies Problems [...] Problem Unspecified breast screening V76.10 Active Medications No Known Medications Results No Known Results Summary Purpose eClinicalWorks Submission
[2017-08-25 16:09] LABS: BASOPHILS % (AUTO) 0 % (0-10); EOSINOPHILS % (AUTO) 0 % (0-10); LYMPHOCYTES # (AUTO) 0.8 X 10^3 (1.0-4.0); LYMPHOCYTES % (AUTO) 10 % (12-44); MEAN CORPUSCULAR HEMOGLOBIN 34 PG (25-34); MEAN CORPUSCULAR HGB CONC 37 G/DL (32-36); MEAN CORPUSCULAR VOLUME 91 FL (80-99); MEAN PLATELET VOLUME 9.4 FL (7.4-10.4); MONOCYTES # (AUTO) 0.6 X 10^3 (0.0-1.0); MONOCYTES % (AUTO) 8 % (0-12); NEUTROPHILS # (AUTO) 6.5 X 10^3 (1.8-7.8); NEUTROPHILS % (AUTO) 82 % (42-75); PLATELET COUNT 258 10^3/uL (130-400); RED CELL DISTRIBUTION WIDTH 11.1 % (10.0-14.5)
[2017-08-25 16:19] LABS: ALBUMIN 3.2 GM/DL (3.2-4.5); BILIRUBIN,TOTAL 0.3 MG/DL (0.1-1.0); CALCIUM 8.4 MG/DL (8.5-10.1); CREATININE SERUM 1.82 MG/DL (0.60-1.30); TOTAL PROTEIN 6.9 GM/DL (6.4-8.2)
[2017-08-25 16:23] LABS: POTASSIUM 2.4 MMOL/L (3.6-5.0)
[2017-08-25 16:32] LABS: BILIRUBIN,URINE NEGATIVE (NEGATIVE); KETONES,URINE NEGATIVE (NEGATIVE); LEUKOCYTE ESTERASE ,URINE 3+ (NEGATIVE); NITRITE,URINE NEGATIVE (NEGATIVE); PH,URINE 6 (5-9); PROTEIN,URINE 2+ (NEGATIVE); UROBILINOGEN,URINE NORMAL (NORMAL)
[2017-08-25 16:43] LABS: SQUAMOUS EPITHELIAL CELL,UR 0-2 /HPF; WBC,URINE TNTC /HPF
[2017-08-25] MEDS ORDERED: SODIUM CHLORIDE 3% 500 ML IV SCH (17:00)
--- NOTE | 2017-08-25 17:02 | Diagnostic Imaging Report ---
EXAMINATION: Portable upright radiograph of the chest. INDICATION: Confusion. Nausea and vomiting. FINDINGS: The lungs demonstrate no focal infiltrate. Background likely chronic interstitial thickening is seen. The heart size is normal. No effusion or pneumothorax. The mediastinum and jackie appear unremarkable. There is right convexity scoliosis centered around the lower thoracic spine. Surgical clips in the upright abdomen are seen. IMPRESSION: Likely chronic interstitial thickening with no focal infiltrates. Dictated by: Dictated on workstation # [id number]
--- NOTE | 2017-08-25 17:09 | ED General ---
General Chief Complaint: Altered Mental Status Stated Complaint: WEAKNESS,VOMITING Nursing Triage Note: PT FAMILY REPORTS FOR A COUPLE WEEKS PT HAS BECOME MORE CONFUSED AND WEAK. PT REPORTS N/V/D FOR A COUPLE WEEKS WELL. Nursing Sepsis Screen: No Definite Risk Source of Information: Patient, Family History of Present Illness Time Seen by Provider: 16:35 Initial Comments The patient is a 61-year-old white female brought by her family. They report that she has been increasingly more confused over the last 2 weeks. She has had no appetite and at times has had nausea and vomiting. She was asked what the day and date were and gave me August 13 but then quickly corrected it to August 25. She is a smoker with greater than 10-golm-jtmf smoking history. She takes antihypertensives including one with hydrochlorothiazide. Her family reports that she has been sleeping more than usual and has been lethargic. Apparently earlier this year she had an admission prompted by refractory hypokalemia. Timing/Duration: Other Associated Systoms: Nausea/Vomiting, Weakness Allergies and Home Medications Allergies Coded Allergies: morphine (Verified Allergy, Unknown, 01/01/09) Home Medications Atenolol 50 Mg Tablet, 50 MG PO DAILY, (Reported) Doxycycline Monohydrate 100 Mg Tablet, 100 MG PO BID, #20 Prescribed by: HERBER KRISHNAMURTHY on 08/01/15 1225 Hydrochlorothiazide 25 Mg Tablet, 25 MG PO DAILY, (Reported) Hydrocodone/Acetaminophen 1 Each Tablet, 1 EACH PO Q4H PRN for PAIN, (Reported) Hydrocodone/Acetaminophen 1 Each Tablet, 1 EACH PO Q6H PRN for SEVERE PAIN, #50 Prescribed by: HERBER KRISHNAMURTHY on 08/01/15 1225 Constitutional: see HPI EENTM: no symptoms reported Cardiovascular: no symptoms reported Gastrointestinal: nausea, vomiting Genitourinary: other Musculoskeletal: muscle weakness Skin: no symptoms reported Psychiatric/Neurological: Weakness, Other (confusion) Hematologic/Lymphatic: No Symptoms Reported Immunological/Allergic: no symptoms reported Past Gfqkhwh-Thburu-Ogygdz Hx Patient Social History Alcohol Use: Denies Use Recreational Drug Use: No Smoking Status: Current Everyday Smoker Type Used: Cigarettes Recent Foreign Travel: No Contact w/Someone Who Travel: No Recent Infectious Disease Expo: No Physical Abuse: No Sexual Abuse: No Mistreated: No Fear: No Surgeries History of Surgeries: Yes (NUMEROUS SX ON FEET AND KNEES R/T POLIO, RIGHT SHOULDER) Surgeries: Gallbladder, Orthopedic Respiratory History of Respiratory Disorde: No Cardiovascular History of Cardiac Disorders: Yes Cardiac Disorders: Hypertension Neurological History of Neurological Disord: No Reproductive System Hx Reproductive Disorders: Yes Sexually Transmitted Disease: No Genitourinary Genitourinary Disorders: Bladder Infection, UTI-Chronic Gastrointestinal History of Gastrointestinal Di: No Musculoskeletal History of Musculoskeletal Dis: Yes (POLIO A CHILD) Musculoskeletal Disorders: Arthritis Endocrine History of Endocrine Disorders: No Cancer History of Cancer: No Psychosocial History of Psychiatric Problem: No Suicide Risk Score: 0 Integumentary History of Skin or Integumenta: Yes (SKIN ULCERS ON R FOOT) Blood Transfusions History of Blood Disorders: No Physical Exam Vital Signs Vital Sign - Last 12Hours 08/25/17 15:55 Temp 98.5 Pulse 70 Resp 16 B/P (MAP) 89/57 (68) Pulse Ox 97 Capillary Refill : Less Than 3 Seconds General Appearance: Other (she exhibited no distress or even concern for her state of health. She is quite tiny at 4 feet 8 inches and 86 pounds) Eyes: Bilateral Eye Normal Inspection HEENT: Normal ENT Inspection Neck: Normal Inspection Respiratory: Decreased Breath Sounds (distant) Cardiovascular: Regular Rate, Rhythm, No Edema, No Gallop, No JVD, No Murmur, Normal Peripheral Pulses Gastrointestinal: Other (scaphoid no masses or tenderness) Neurologic/Psychiatric: Other (mild confusion) Skin: Normal Color, Warm/Dry Lymphatic: No Adenopathy Progress/Results/Core Measures Suspected Sepsis Recent Fever Within 48 Hours: No Infection Criteria Present: Suspected New Infection New/Unexplained Altered Menta: Yes Sepsis Screen: No Definite Risk Sepsis Diagnosis: SIRS Temperature:98.5 Pulse: 70 Respiratory Rate: 16 Laboratory Tests 08/25/17 15:49: White Blood Count 8.0 Blood Pressure 89 /57 Mean: 68 Laboratory Tests 08/25/17 15:49: Creatinine 1.82H, Platelet Count 258, Total Bilirubin 0.3 Results/Orders Lab Results Laboratory Tests Test 08/25/17 15:49 08/25/17 16:15 Range/Units White Blood Count 8.0 4.3-11.0 10^3/uL Red Blood Count 3.50 L 4.35-5.85 10^6/uL Hemoglobin 11.9 11.5-16.0 G/DL Hematocrit 32 L 35-52 % Mean Corpuscular Volume 91 80-99 FL Mean Corpuscular Hemoglobin 34 25-34 PG Mean Corpuscular Hemoglobin Concent 37 H 32-36 G/DL Red Cell Distribution Width 11.1 10.0-14.5 % Platelet Count 258 130-400 10^3/uL Mean Platelet Volume 9.4 7.4-10.4 FL Neutrophils (%) (Auto) 82 H 42-75 % Lymphocytes (%) (Auto) 10 L 12-44 % Monocytes (%) (Auto) 8 0-12 % Eosinophils (%) (Auto) 0 0-10 % Basophils (%) (Auto) 0 0-10 % Neutrophils # (Auto) 6.5 1.8-7.8 X 10^3 Lymphocytes # (Auto) 0.8 L 1.0-4.0 X 10^3 Monocytes # (Auto) 0.6 0.0-1.0 X 10^3 Eosinophils # (Auto) 0.0 0.0-0.3 10^3/uL Basophils # (Auto) 0.0 0.0-0.1 10^3/uL Sodium Level 113 *L 135-145 MMOL/L Potassium Level 2.4 *L 3.6-5.0 MMOL/L Chloride Level 75 L 98-107 MMOL/L Carbon Dioxide Level 22 21-32 MMOL/L Anion Gap 16 H 5-14 MMOL/L Blood Urea Nitrogen 81 H 7-18 MG/DL Creatinine 1.82 H 0.60-1.30 MG/DL Estimat Glomerular Filtration Rate 28 BUN/Creatinine Ratio 45 Glucose Level 85 70-105 MG/DL Calcium Level 8.4 L 8.5-10.1 MG/DL Total Bilirubin 0.3 0.1-1.0 MG/DL Aspartate Amino Transf (AST/SGOT) 121 H 5-34 U/L Alanine Aminotransferase (ALT/SGPT) 62 H 0-55 U/L Alkaline Phosphatase 119 40-136 U/L Total Protein 6.9 6.4-8.2 GM/DL Albumin 3.2 3.2-4.5 GM/DL Urine Color YELLOW Urine Clarity VERY CLOUDY H Urine pH 6 5-9 Urine Specific [place] 1.010 L 1.016-1.022 Urine Protein 2+ H NEGATIVE Urine Glucose (UA) NEGATIVE NEGATIVE Urine Ketones NEGATIVE NEGATIVE Urine Nitrite NEGATIVE NEGATIVE Urine Bilirubin NEGATIVE NEGATIVE Urine Urobilinogen NORMAL NORMAL MG/DL Urine Leukocyte Esterase 3+ H NEGATIVE Urine RBC (Auto) 5+ H NEGATIVE Urine RBC 10-25 H /HPF Urine WBC TNTC H /HPF Urine Squamous Epithelial Cells 0-2 /HPF Urine Crystals NONE /LPF Urine Bacteria LARGE H /HPF Urine Casts NONE /LPF Urine Mucus NEGATIVE /LPF Urine Culture Indicated YES My Orders Orders - NICOLASA CHINCHILLA MD Cbc With Automated Diff (08/25/17 16:04) Comprehensive Metabolic Panel (08/25/17 16:04) Ua Culture If Indicated (08/25/17 16:04) Chest 1 View, Ap/Pa Only (08/25/17 16:35) Urine Culture (08/25/17 16:15) Sodium Chloride 3% (Hypertonic Sodium Ch (08/25/17 17:00) Vital Signs/I&O Vital Sign - Last 12Hours 08/25/17 15:55 Temp 98.5 Pulse 70 Resp 16 B/P (MAP) 89/57 (68) Pulse Ox 97 Capillary Refill : Less Than 3 Seconds Blood Pressure Mean: 68 Departure Communication (Admissions) Progress Notes [address] Ansari who is in-house with [facility]. The patient will be admitted to the ICU. Impression Impression: Primary Impression: hyponatremia Disposition: ADMITTED INPATIENT Condition: Stable/Unchanged Admissions Decision to Admit Reason: Admit from ER (General) Decision to Admit/Date: Aug 25, 2017 Time/Decision to Admit Time: 17:13 Departure-Patient Inst. Referrals: [facility] (PCP/Family) Primary Care Physician NICOLASA CHINCHILLA MD Aug 25, 2017 17:09
--- OUTSIDE RECORDS SUMMARY | 2017-08-25 17:28 | XMS REPORT | Continuity of Care Document ---
Author Author [facility] Address Unknown Phone Unavailable Allergies Active Description Code Type Severity Reaction Onset Reported/Identified Relationship to Patient Clinical Status Yes morphine [id number] Drug Allergy Unknown N/A 01/01/2009 Medications Problems [...] SMOKING CESSATION 09/11/2014 DEBO NAIR APRN V72.31 DEPARTMENT EDITOR EXAM, ROUTINE 09/11/2014 DEBO NAIR APRN V73.81 HPV SCREENING 09/11/2014 DEBO NAIR APRN V76.10 BREAST CANCER SCREENING 09/11/2014 DEBO NAIR APRN V76.2 CERVICAL CANCER SCREENING (PAP SMEAR) 09/11/2014 DEBO NAIR APRN V76.51 COLON CANCER SCREENING 09/11/2014 CHRISTIAN THOMAS MD 627.1 POSTMENOPAUSAL BLEEDING 09/11/2014 CHRISTIAN THOMAS MD V65.42 COUNSELING - SMOKING CESSATION 09/11/2014 CHRISTIAN THOMAS MD V72.31 DEPARTMENT EDITOR EXAM, ROUTINE 09/11/2014 CHRISTIAN THOMAS MD V73.81 HPV SCREENING 09/11/2014 CHRISTIAN THOMAS MD V76.10 BREAST CANCER SCREENING 09/11/2014 CHRISTIAN THOMAS MD V76.2 CERVICAL CANCER SCREENING (PAP SMEAR) 09/11/2014 CHRISTIAN THOMAS MD V76.51 COLON CANCER SCREENING 09/11/2014 DEBO NAIR APRN 627.1 POSTMENOPAUSAL BLEEDING 09/11/2014 DEBO NAIR APRN V65.42 COUNSELING - SMOKING CESSATION 09/11/2014 JOANIE EDWARDS DEBO A V72.31 DEPARTMENT EDITOR EXAM, ROUTINE 09/11/2014 JOANIE EDWARDS DEBO A V73.81 HPV SCREENING 09/11/2014 JOANIE EDWARDS DEBO A V76.10 BREAST CANCER SCREENING 09/11/2014 JOANIE EDWARDS DEBO A V76.2 CERVICAL CANCER SCREENING (PAP SMEAR) 09/11/2014 JOANIE RESOURCE PROTECTION SPECIALIST, DEBO A V76.51 COLON CANCER SCREENING 11/20/2014 Ot 457.1 11/20/2014 Ot 782.1 07/23/2015 GERDA YOUSIF, JUAQUIN [place] Ot N95.0 08/01/2015 YESSY PEDROZAHERBER Ot N71.9 08/01/2015 YESSY HERBER PEDROZA Ot N95.0 08/01/2015 FENTREASURE PEDROZAHERBER Ot N95.2 08/01/2015 YESSY PEDROZAHERBER Ot R93.8 10/28/2015 YESSY PEDROZAHERBER Ot E87.1 10/28/2015 YESSY PEDROZA HERBER [place] Ot E87.6 Procedures Code [place] [address] ROUTINE VENIPUNCTURE 07/18/2012 Podiatry Eugenie Vallejo 07/18/2012 44664 CMP 07/18/2012 05817 LIPID PANEL 07/18 [id number] GFR CALC (RESULT ONLY) 07/18/2012 62872 ROUTINE VENIPUNCTURE 05/04/2014 13576 CMP 05/04/2014 03444 LIPID PANEL 05/04 [id number] GFR CALC (RESULT ONLY) 05/04/2014 16041 ROUTINE VENIPUNCTURE 06/28/2014 1432803 GFR CALC (RESULT ONLY) 06/28/2014 64607 BMP 06/28/2014 21704 MAMMOGRAM, SCREENING 09/11/2014 Q0091 PAP SMEAR OBTAIN SMEAR 09/11/2014 45721 HEMOCCULT 2013 07420 PAP SMEAR 2013 45152 XRAY HIP LEFT UNILATERAL MIN 2 VIEWS 10/01/2014 06818 ENDOMETRIAL BIOPSY 10/03/2014 Results Encounters ACCT No. Visit Date/Time Discharge Status Pt. Type Provider Facility Loc./Unit Complaint [id number] 10/03/2014 10:33:00 10/03/2014 23: 59:59 CLS Outpatient DEBO NAIR APRN [id number] 09/28/2014 13:58:00 09/28/2014 23: 59:59 CLS Outpatient CHRISTIAN THOMAS MD [id number] 09/11/2014 14:25:00 09/11/2014 23: 59:59 CLS Outpatient DEBO NAIR APRN [id number] 06/28/2014 13:57:00 06/28/2014 23: 59:59 CLS Outpatient CHRISTIAN THOMAS MD [id number] 05/04/2014 14:20:00 05/04/2014 23: 59:59 CLS Outpatient CHRISTIAN THOMAS MD [id number] 01/15/2014 15:38:00 01/15/2014 23: 59:59 CLS Outpatient CHRISTIAN THOMAS MD [id number] 09/28/2013 14:21:00 09/28/2013 23: 59:59 CLS Outpatient CHRISTIAN THOMAS MD [id number] 05/09/2013 11:14:00 05/09/2013 23: 59:59 CLS Outpatient CHRISTIAN THOMAS MD [id number] 07/18/2012 10:11:00 07/18/2012 23:59 :59 CLS Outpatient [id number] 07/18/2012 10:11:00 07/18/2012 23: 59:59 CLS Outpatient CHRISTIAN THOMAS MD [id number] 02/09/2013 16:48:00 Document Registration [id number] 08/01/2015 09:02:00 2014 16:10:00 DIS Outpatient HERBER KRISHNAMURTHY DO Via [facility] [id number] 07/30/2015 09:46:00 2014 23:59:59 CLS Outpatient HERBER KRISHNAMURTHY DO [facility] [id number] 07/26/2015 15:26:00 2014 23:59:59 CLS Outpatient HERBER KRISHNAMURTHY DO [facility] PREOP [id number] 06/28/2015 10:55:00 2014 23:59:59 CLS Outpatient JUAQUIN LORENZ MD [facility] [id number] 10/08/2014 10:15:00 2014 23:59:59 CLS Preadmit DEBO NAIR APRN [facility] [id number] 11/20/2014 21:18:00 Document Registration
[2017-08-25] MEDS ORDERED: cefTRIAXone INJECTION 1,000 MG in NS (IVPB) 50 ML IV ONE (17:45)
[2017-08-25] MEDS ORDERED: NS IV 1000 ML 1,000 ML IV ONE (18:36)
[2017-08-25] MEDS ORDERED: KCL 20 MEQ TAB (K-DUR) PO NR (19:00)
[2017-08-25] MEDS ORDERED: KCL 20 MEQ TAB (K-DUR) PO ONE ×2 (19:00→22:00)
[2017-08-25] MEDS ORDERED: CATHETER FLUSH 10 ML SYR IV PRN (19:15)
[2017-08-25 20:02] LABS: CALCIUM 7.7 MG/DL (8.5-10.1)
[2017-08-25 20:05] LABS: POTASSIUM 2.2 MMOL/L (3.6-5.0)
[2017-08-25] MEDS ORDERED: RT-ALBUTEROL SULF 2.5 MG/3 ML PRE-MIX VIAL IH PRN (20:15)
[2017-08-25 20:20] LABS: CREATININE SERUM 1.52 MG/DL (0.60-1.30)
[2017-08-25] MEDS: NICOTINE 21 MG (NICODERM) PATCH TD SCH (20:24)
[2017-08-25] MEDS: CATHETER FLUSH 10 ML SYR IV SCH (20:25)
[2017-08-25] MEDS ORDERED: 1/2 NS IV SOLUTION 1,000 ML IV SCH (21:15)
[2017-08-25] MEDS ORDERED: NS IV 1000 ML 1,000 ML IV SCH (21:15)
[2017-08-25] MEDS: POTASSIUM CL 10MEQ/50ML IVPB 50 ML IV SCH ×3 (21:16→23:28)
[2017-08-26] VITALS (24 sets, daily range): BP systolic 86–128; BP diastolic 40–72
[2017-08-26] MEDS: POTASSIUM CL 10MEQ/50ML IVPB 50 ML IV SCH ×6 (00:25→06:51)
[2017-08-26] MEDS ORDERED: NS IV 1000 ML 1,000 ML IV SCH (00:45)
[2017-08-26 00:50] LABS: CALCIUM 7.7 MG/DL (8.5-10.1); CREATININE SERUM 1.25 MG/DL (0.60-1.30); MAGNESIUM 1.7 MG/DL (1.8-2.4); POTASSIUM 2.6 MMOL/L (3.6-5.0)
[2017-08-26] MEDS: RT-ALBUTEROL SULF 2.5 MG/3 ML PRE-MIX VIAL IH SCH ×4 (01:55→19:10)
[2017-08-26] MEDS ORDERED: D5W 1000 ML IV SOLUTION 1,000 ML IV SCH (02:00)
[2017-08-26] MEDS: MAGNESIUM 1 GM/100 ML IVPB 100 ML IV SCH ×3 (02:32→05:49)
[2017-08-26 05:22] LABS: BASOPHILS % (AUTO) 0 % (0-10); EOSINOPHILS % (AUTO) 0 % (0-10); LYMPHOCYTES # (AUTO) 0.6 X 10^3 (1.0-4.0); LYMPHOCYTES % (AUTO) 10 % (12-44); MEAN CORPUSCULAR HEMOGLOBIN 34 PG (25-34); MEAN CORPUSCULAR HGB CONC 37 G/DL (32-36); MEAN CORPUSCULAR VOLUME 93 FL (80-99); MEAN PLATELET VOLUME 9.2 FL (7.4-10.4); MONOCYTES # (AUTO) 0.7 X 10^3 (0.0-1.0); MONOCYTES % (AUTO) 11 % (0-12); NEUTROPHILS # (AUTO) 5.1 X 10^3 (1.8-7.8); NEUTROPHILS % (AUTO) 80 % (42-75); PLATELET COUNT 268 10^3/uL (130-400); RED BLOOD COUNT 2.86 10^6/uL (4.35-5.85); RED CELL DISTRIBUTION WIDTH 11.2 % (10.0-14.5); WHITE BLOOD COUNT 6.4 10^3/uL (4.3-11.0)
[2017-08-26 05:43] LABS: ALBUMIN 2.5 GM/DL (3.2-4.5); BILIRUBIN,TOTAL 0.2 MG/DL (0.1-1.0); CALCIUM 7.8 MG/DL (8.5-10.1); CREATININE SERUM 1.05 MG/DL (0.60-1.30); PHOSPHORUS 2.4 MG/DL (2.3-4.7); POTASSIUM 3.5 MMOL/L (3.6-5.0); TOTAL PROTEIN 5.3 GM/DL (6.4-8.2)
[2017-08-26] MEDS: KCL 20 MEQ TAB (K-DUR) PO SCH (05:48)
[2017-08-26] MEDS: CATHETER FLUSH 10 ML SYR IV SCH ×3 (05:55→22:26)
--- NOTE | 2017-08-26 07:09 | Pulmonary Consultation ---
History of Present Illness History of Present Illness Date of Consultation 08/26/17 07:04 Time Seen by Provider: 07:04 Date of Admission History of Present Illness 61yo with hx of 40pk/yr hx of tobacco use presented to ED secondary to worsening confusion, decreased appetite, N/V over the last 2 wks. Upon ED admisson pt was found to have hyponatremia and hypokalemia. she [facility] She was also dx with UTI. She has had one other episode of hypokalemia that required hospitalization. I am consulted for ICU management. Allergies and Home Medications Allergies Coded Allergies: morphine (Verified Allergy, Unknown, 01/01/09) Home Medications Atenolol 50 Mg Tablet, 50 MG PO DAILY, (Reported) Doxycycline Monohydrate 100 Mg Tablet, 100 MG PO BID, #20 Prescribed by: HERBER KRISHNAMURTHY on 08/01/15 1225 Hydrochlorothiazide 25 Mg Tablet, 25 MG PO DAILY, (Reported) Hydrocodone/Acetaminophen 1 Each Tablet, 1 EACH PO Q4H PRN for PAIN, (Reported) Hydrocodone/Acetaminophen 1 Each Tablet, 1 EACH PO Q6H PRN for SEVERE PAIN, #50 Prescribed by: HERBER KRISHNAMURTHY on 08/01/15 1225 Past Yblxmbt-Tepsxi-Yplncl Hx Patient Social History Alcohol Use: Denies Use Recreational Drug Use: No Smoking Status: Current Everyday Smoker Type Used: Cigarettes Recent Foreign Travel: No Contact w/Someone Who Travel: No Recent Infectious Disease Expo: No Recent Hopitalizations: No Physical Abuse: No Sexual Abuse: No Mistreated: No Fear: No Immunizations Up To Date Date of Influenza Vaccine: Jul 26, 2017 Seasonal Allergies Seasonal Allergies: No Surgeries History of Surgeries: Yes (NUMEROUS SX ON FEET AND KNEES R/T POLIO, RIGHT SHOULDER) Surgeries: Gallbladder, Orthopedic Respiratory History of Respiratory Disorde: No Cardiovascular History of Cardiac Disorders: Yes Cardiac Disorders: Hypertension Neurological History of Neurological Disord: No Reproductive System : No Hx Reproductive Disorders: Yes Sexually Transmitted Disease: No Genitourinary History of Genitourinary Disor: Yes Genitourinary Disorders: Bladder Infection, UTI-Chronic Gastrointestinal History of Gastrointestinal Di: No Musculoskeletal History of Musculoskeletal Dis: Yes (POLIO A CHILD) Musculoskeletal Disorders: Arthritis Endocrine History of Endocrine Disorders: No HEENT History of HEENT Disorders: No Cancer History of Cancer: No Psychosocial History of Psychiatric Problem: Yes Behavioral Health Disorders: Anxiety, Depression Suicide Risk Score: 0 Integumentary History of Skin or Integumenta: Yes (SKIN ULCERS ON R FOOT) Blood Transfusions History of Blood Disorders: No Family Medical History Family Medial History: Blood clots 19 FATHER Diabetes mellitus 19 FATHER 19 MOTHER FH: heart disease 19 FATHER FH: uterine cancer G8 SISTER Substance abuse G8 BROTHER G8 SISTER Review of Systems Time Seen by Provider: 07:26 Constitutional: Weakness, Malaise, No: Fever, Chills, Other Eyes: No: Pain, Vision change, Conjunctivae inflammation, Eyelid inflammation, Other, Redness ENT: No: Ear pain, Ear discharge, Nose pain, Nose discharge, Nose congestion, Mouth pain, Mouth swelling, Throat pain, Throat swelling, Other Respiratory: Shortness of breath, SOB with excertion, No: Cough, Dry, Wheezing , Hemoptysis, Pleuritic Pain, Sputum, Wheezing, Other Cardiovascular: No: Chest Pain, Palpitations, Orthopnea, Paroxysmal Noc. Dyspnea, Edema, Lt Headedness, Other Gastrointestinal: Nausea, Vomiting, Diarrhea, No: Abdominal Pain, Constipation , Melena, Hematochezia Neurological: Weakness, Incoordination, Confusion Exam Exam Vital Signs Date Time Temp Pulse Resp B/P (MAP) Pulse Ox O2 Delivery O2 Flow Rate FiO2 08/26/17 06:00 70 17 96/57 (70) 96 Room Air 08/26/17 05:00 73 12 96/54 (68) 93 Room Air 08/26/17 04:00 71 17 93/56 (68) 93 Room Air 08/26/17 04:00 97.7 73 14 116/67 (83) 91 Room Air 08/26/17 03:30 93 Room Air 08/26/17 03:00 74 15 86/62 (70) 93 Room Air 08/26/17 02:00 78 12 109/62 (78) 98 Room Air 08/26/17 01:55 93 Room Air 08/26/17 01:00 66 19 98/61 (73) 94 Room Air 08/26/17 01:00 67 08/26/17 00:00 80 18 119/52 (74) 92 Room Air 08/25/17 23:57 98.6 08/25/17 23:25 92 Room Air 08/25/17 23:00 66 12 86/54 (65) 93 Room Air 08/25/17 22:00 66 11 85/60 (68) 98 Room Air 08/25/17 21:00 66 9 89/53 (65) 95 Room Air 08/25/17 20:30 68 12 122/62 (82) 96 Room Air 08/25/17 20:06 73 97 21 08/25/17 20:00 98.4 69 11 98/61 (73) 95 Room Air 08/25/17 20:00 95 Room Air 08/25/17 19:30 96 Room Air 08/25/17 19:00 67 08/25/17 19:00 70 18 94 Room Air 08/25/17 18:48 98.6 71 16 110/68 (82) 94 Room Air 08/25/17 18:44 98.2 63 20 96 Room Air 08/25/17 15:55 98.5 70 16 89/57 (68) 97 I & O 08/26/17 07:00 Intake Total 4455 ml Output Total 3050 ml Balance 1405 ml General Appearance: No Apparent Distress, WD/WN HEENT: Normal ENT Inspection Neck: Normal Inspection Respiratory: Decreased Breath Sounds (distant) Cardiovascular: Regular Rate, Rhythm, No Edema, No Gallop, No JVD, No Murmur, Normal Peripheral Pulses Capillary Refill: Less Than 3 Seconds Gastrointestinal: normal bowel sounds, non tender, soft Extremity: Normal Capillary Refill, Normal Inspection, Non Tender Neurologic/Psychiatric: Other (mild confusion) Skin: Normal Color, Warm/Dry Lymphatic: No Adenopathy Results Lab Laboratory Tests 08/25/17 15:49 08/25/17 19:40 08/26/17 00:20 08/26/17 05:05 Assessment/Plan Assessment/Plan -Hyponatremia - severe - much improved -Na 113 admission and now improved to 124 -Pt is on D5W secondary to rapid improvement of Na -Labs are ordered Q4 UTI -GNR in urine -will resume Rocephin N/v/D - without abdominal pain monitor Elevated LFTs -hepatitis panel -Check RUQ US Hypotension -IVF Hypokalemia -replace Tobacco dependance -education 255 Clinical Quality Measures DVT/VTE Risk/Contraindication: Risk Factor Score Per Nursin RFS Level Per Nursing on Admit: 4+=Very High RAZ BURTON DO Aug 26, 2017 07:09
[2017-08-26] MEDS ORDERED: SERT50TA9 PO (07:51)
[2017-08-26] MEDS ORDERED: IBUP-30 PO (07:56)
--- NOTE | 2017-08-26 08:07 | Diagnostic Imaging Report ---
EXAM: CHEST 1 VIEW, AP/PA ONLY INDICATION: Hyponatremia. COMPARISON: Chest radiograph 08/25/2017. FINDINGS: No acute cardiopulmonary findings. Normal heart size and pulmonary vascularity. No focal pulmonary opacity, pleural effusion or pneumothorax. No acute osseous findings. IMPRESSION: No significant change. Dictated by: Dictated on workstation # [id number]
[2017-08-26] MEDS: NICOTINE 21 MG (NICODERM) PATCH TD SCH (08:17)
[2017-08-26] MEDS: cefTRIAXone INJECTION 1,000 MG in NS (IVPB) 50 ML IV SCH (08:17)
[2017-08-26] MEDS: ACETAMINOPHEN 325 MG TABLET/CAPLET (TYLENOL) PO PRN ×2 (08:18→17:25)
[2017-08-26 08:51] LABS: CALCIUM 8.3 MG/DL (8.5-10.1); CREATININE SERUM 0.99 MG/DL (0.60-1.30); MAGNESIUM 2.5 MG/DL (1.8-2.4); POTASSIUM 4.3 MMOL/L (3.6-5.0)
--- NOTE | 2017-08-26 11:16 | History & Physicial (CHS) ---
HPI History of Present Illness: 61 yo F that was brought to hospital by her family due to increasing confusion over the last few weeks. Patient states this AM that she remembers being brought her but she felt very weird. She has not been eating or drinking normally. Denies any pain, fever or chills. + frequent urination. Source: patient, RN/MD, old records Exam Limitations: no limitations Date seen by provider: Aug 26, 2017 Time Seen by Provider: 09:45 Attending Physician Soraida Ansari MD [place] [facility] [place] [place] Date of Admission Aug 25, 2017 at 17:21 Home Medications Home Medications Reviewed patient Home Medication Reconciliation Form Allergies Coded Allergies: morphine (Verified Allergy, Unknown, 01/01/09) [id number]-[id number] Hx Patient Social History Living Status: Lives home alone Alcohol Use: Denies Use Recreational Drug Use: No Smoking Status: Current Everyday Smoker Type Used: Cigarettes Recent Foreign Travel: No Contact w/other who traveled: No Recent Hopitalizations: No Recent Infectious Disease Expo: No Physical Abuse Screen: No Sexual Abuse: No Immunizations Up To Date Date of Influenza Vaccine: Jul 26, 2017 Past Medical History HTN 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 Tobacco Abuse Family Medical History Family History: Blood clots 19 FATHER Diabetes mellitus 19 FATHER 19 MOTHER FH: heart disease 19 FATHER FH: uterine cancer G8 SISTER Substance abuse G8 BROTHER G8 SISTER Review of Systems (CHC) Constitutional: No chills, No fever, weakness EENTM: no symptoms reported Respiratory: no symptoms reported, No cough, No dyspnea on exertion, No orthopnea, No short of breath Cardiovascular: no symptoms reported, No chest pain, No edema, No palpitations Gastrointestinal: No abdominal pain, diarrhea, No jaundice, loss of appetite, No melena, No nausea, No vomiting Genitourinary: No dysuria, frequency, No hematuria : No Musculoskeletal: back pain (Chronic) Skin: no symptoms reported, No lesions, No rash Psychiatric/Neurological: No Symptoms Reported, Denies Anxiety, Denies Depressed, Denies Headache, Denies Numbness, Denies Paresthesia Reviewed Test Results Reviewed Test Results Lab Laboratory Tests Test 08/25/17 15:49 08/25/17 16:15 08/25/17 19:40 08/26/17 00:20 Range/Units White Blood Count 8.0 4.3-11.0 10^3/uL Red Blood Count 3.50 L 4.35-5.85 10^6/uL Hemoglobin 11.9 11.5-16.0 G/DL Hematocrit 32 L 35-52 % Mean Corpuscular Volume 91 80-99 FL Mean Corpuscular Hemoglobin 34 25-34 PG Mean Corpuscular Hemoglobin Concent 37 H 32-36 G/DL Red Cell Distribution Width 11.1 10.0-14.5 % Platelet Count 258 130-400 10^3/uL Mean Platelet Volume 9.4 7.4-10.4 FL Neutrophils (%) (Auto) 82 H 42-75 % Lymphocytes (%) (Auto) 10 L 12-44 % Monocytes (%) (Auto) 8 0-12 % Eosinophils (%) (Auto) 0 0-10 % Basophils (%) (Auto) 0 0-10 % Neutrophils # (Auto) 6.5 1.8-7.8 X 10^3 Lymphocytes # (Auto) 0.8 L 1.0-4.0 X 10^3 Monocytes # (Auto) 0.6 0.0-1.0 X 10^3 Eosinophils # (Auto) 0.0 0.0-0.3 10^3/uL Basophils # (Auto) 0.0 0.0-0.1 10^3/uL Sodium Level 113 *L 119 *L 122 *L 135-145 MMOL/L Potassium Level 2.4 *L 2.2 *L 2.6 L 3.6-5.0 MMOL/L Chloride Level 75 L 85 L 89 L 98-107 MMOL/L Carbon Dioxide Level 22 20 L 18 L 21-32 MMOL/L Anion Gap 16 H 14 15 H 5-14 MMOL/L Blood Urea Nitrogen 81 H 75 H 70 H 7-18 MG/DL Creatinine 1.82 H 1.52 H 1.25 0.60-1.30 MG/DL Estimat Glomerular Filtration Rate 28 35 43 BUN/Creatinine Ratio 45 49 56 Glucose Level 85 79 68 L 70-105 MG/DL Calcium Level 8.4 L 7.7 L 7.7 L 8.5-10.1 MG/DL Total Bilirubin 0.3 0.1-1.0 MG/DL Aspartate Amino Transf (AST/SGOT) 121 H 5-34 U/L Alanine Aminotransferase (ALT/SGPT) 62 H 0-55 U/L Alkaline Phosphatase 119 40-136 U/L Total Protein 6.9 6.4-8.2 GM/DL Albumin 3.2 3.2-4.5 GM/DL Urine Color YELLOW Urine Clarity VERY CLOUDY H Urine pH 6 5-9 Urine Specific Hensel 1.010 L 1.016-1.022 Urine Protein 2+ H NEGATIVE Urine Glucose (UA) NEGATIVE NEGATIVE Urine Ketones NEGATIVE NEGATIVE Urine Nitrite NEGATIVE NEGATIVE Urine Bilirubin NEGATIVE NEGATIVE Urine Urobilinogen NORMAL NORMAL MG/DL Urine Leukocyte Esterase 3+ H NEGATIVE Urine RBC (Auto) 5+ H NEGATIVE Urine RBC 10-25 H /HPF Urine WBC TNTC H /HPF Urine Squamous Epithelial Cells 0-2 /HPF Urine Crystals NONE /LPF Urine Bacteria LARGE H /HPF Urine Casts NONE /LPF Urine Mucus NEGATIVE /LPF Urine Culture Indicated YES Lactic Acid Level 0.63 0.50-2.00 MMOL/L Magnesium Level 1.7 L 1.8-2.4 MG/DL Test 08/26/17 04:21 08/26/17 05:05 08/26/17 08:27 08/26/17 09:00 Range/Units Glucometer 122 H 93 70-110 MG/DL White Blood Count 6.4 4.3-11.0 10^3/uL Red Blood Count 2.86 L 4.35-5.85 10^6/uL Hemoglobin 9.7 L 11.5-16.0 G/DL Hematocrit 27 L 35-52 % Mean Corpuscular Volume 93 80-99 FL Mean Corpuscular Hemoglobin 34 25-34 PG Mean Corpuscular Hemoglobin Concent 37 H 32-36 G/DL Red Cell Distribution Width 11.2 10.0-14.5 % Platelet Count 268 130-400 10^3/uL Mean Platelet Volume 9.2 7.4-10.4 FL Neutrophils (%) (Auto) 80 H 42-75 % Lymphocytes (%) (Auto) 10 L 12-44 % Monocytes (%) (Auto) 11 0-12 % Eosinophils (%) (Auto) 0 0-10 % Basophils (%) (Auto) 0 0-10 % Neutrophils # (Auto) 5.1 1.8-7.8 X 10^3 Lymphocytes # (Auto) 0.6 L 1.0-4.0 X 10^3 Monocytes # (Auto) 0.7 0.0-1.0 X 10^3 Eosinophils # (Auto) 0.0 0.0-0.3 10^3/uL Basophils # (Auto) 0.0 0.0-0.1 10^3/uL Sodium Level 124 *L 125 *L 135-145 MMOL/L Potassium Level 3.5 L 4.3 3.6-5.0 MMOL/L Chloride Level 98 102 98-107 MMOL/L Carbon Dioxide Level 15 L 15 L 21-32 MMOL/L Anion Gap 11 8 5-14 MMOL/L Blood Urea Nitrogen 62 H 56 H 7-18 MG/DL Creatinine 1.05 0.99 0.60-1.30 MG/DL Estimat Glomerular Filtration Rate 53 57 BUN/Creatinine Ratio 59 57 Glucose Level 118 H 103 70-105 MG/DL Calcium Level 7.8 L 8.3 L 8.5-10.1 MG/DL Phosphorus Level 2.4 2.3-4.7 MG/DL Magnesium Level 2.6 H 2.5 H 1.8-2.4 MG/DL Total Bilirubin 0.2 0.1-1.0 MG/DL Aspartate Amino Transf (AST/SGOT) 87 H 5-34 U/L Alanine Aminotransferase (ALT/SGPT) 53 0-55 U/L Alkaline Phosphatase 164 H 40-136 U/L Total Protein 5.3 L 6.4-8.2 GM/DL Albumin 2.5 L 3.2-4.5 GM/DL Radiology Date of Exam: 08/25/17 CHEST 1 VIEW, AP/PA ONLY EXAMINATION: Portable upright radiograph of the chest. INDICATION: Confusion. Nausea and vomiting. FINDINGS: The lungs demonstrate no focal infiltrate. Background likely chronic interstitial thickening is seen. The heart size is normal. No effusion or pneumothorax. The mediastinum and jackie appear unremarkable. There is right convexity scoliosis centered around the lower thoracic spine. Surgical clips in the upright abdomen are seen. IMPRESSION: Likely chronic interstitial thickening with no focal infiltrates. Physical Exam-(CHC) Physical Exam Vital Signs VS - Last 72 Hours, by Label 08/25/17 08/25/17 08/25/17 08/25/17 15:55 18:44 18:48 19:00 Temp 98.5 98.2 98.6 Pulse 70 63 71 70 Resp 16 20 16 18 B/P (MAP) 89/57 (68) 110/68 (82) Pulse Ox 97 96 94 94 O2 Delivery Room Air Room Air Room Air 08/25/17 08/25/17 08/25/17 08/25/17 19:00 19:30 20:00 20:00 Temp 98.4 Pulse 67 69 Resp 11 B/P (MAP) 98/61 (73) Pulse Ox 96 95 95 O2 Delivery Room Air Room Air Room Air 08/25/17 08/25/17 08/25/17 08/25/17 20:06 20:30 21:00 22:00 Pulse 73 68 66 66 Resp 12 9 11 B/P (MAP) 122/62 (82) 89/53 (65) 85/60 (68) Pulse Ox 97 96 95 98 O2 Delivery Room Air Room Air Room Air FiO2 21 08/25/17 08/25/17 08/25/17 08/26/17 23:00 23:25 23:57 00:00 Temp 98.6 Pulse 66 80 Resp 12 18 B/P (MAP) 86/54 (65) 119/52 (74) Pulse Ox 93 92 92 O2 Delivery Room Air Room Air Room Air 08/26/17 08/26/17 08/26/17 08/26/17 01:00 01:00 01:55 02:00 Pulse 67 66 78 Resp 19 12 B/P (MAP) 98/61 (73) 109/62 (78) Pulse Ox 94 93 98 O2 Delivery Room Air Room Air Room Air 08/26/17 08/26/17 08/26/17 08/26/17 03:00 03:30 04:00 04:00 Temp 97.7 Pulse 74 73 71 Resp 15 14 17 B/P (MAP) 86/62 (70) 116/67 (83) 93/56 (68) Pulse Ox 93 93 91 93 O2 Delivery Room Air Room Air Room Air Room Air 08/26/17 08/26/17 08/26/17 08/26/17 05:00 06:00 07:00 07:00 Pulse 73 70 77 73 Resp 12 17 22 B/P (MAP) 96/54 (68) 96/57 (70) 95/61 (72) Pulse Ox 93 96 96 O2 Delivery Room Air Room Air Room Air 08/26/17 08/26/17 08/26/17 08/26/17 08:00 08:05 09:00 09:00 Temp 98.4 Pulse 86 75 Resp 17 14 B/P (MAP) 87/40 (56) 99/64 (76) Pulse Ox 94 93 99 O2 Delivery Room Air Room Air Room Air 08/26/17 08/26/17 08/26/17 08/26/17 10:00 10:13 11:00 12:00 Temp 97.7 Pulse 73 80 Resp 15 13 B/P (MAP) 92/61 (71) 89/53 (65) Pulse Ox 96 98 96 O2 Delivery Room Air Room Air Room Air 08/26/17 08/26/17 08/26/17 08/26/17 12:00 12:00 12:55 13:00 Pulse 77 69 71 Resp 13 21 B/P (MAP) 102/69 (80) 97/55 (69) Pulse Ox 98 93 97 O2 Delivery Room Air Room Air Room Air 08/26/17 08/26/17 08/26/17 08/26/17 14:00 14:11 15:00 16:00 Pulse 70 89 79 Resp 12 12 9 B/P (MAP) 95/58 (70) 107/56 (73) 92/54 (67) Pulse Ox 100 100 100 99 O2 Delivery Room Air Room Air Room Air Room Air 08/26/17 08/26/17 08/26/17 08/26/17 16:00 17:00 18:00 19:00 Pulse 71 77 91 Resp 21 13 B/P (MAP) 100/57 (71) 99/59 (72) Pulse Ox 93 99 98 O2 Delivery Room Air Room Air Room Air 08/26/17 08/26/17 08/26/17 08/26/17 19:00 19:10 20:00 20:00 Temp 99.0 Pulse 87 86 Resp 19 22 B/P (MAP) 128/72 (90) 104/65 (78) Pulse Ox 98 98 99 O2 Delivery Room Air Room Air Room Air 08/26/17 08/26/17 08/26/17 08/26/17 20:00 21:00 22:00 23:00 Pulse 80 90 80 Resp 15 18 23 B/P (MAP) 102/59 (73) 118/63 (81) 97/58 (71) Pulse Ox 93 98 100 97 O2 Delivery Room Air Room Air Room Air Room Air 08/27/17 08/27/17 08/27/17 08/27/17 00:00 00:00 00:00 01:00 Temp 97.8 Pulse 77 73 Resp 23 B/P (MAP) 92/64 (73) Pulse Ox 97 93 O2 Delivery Room Air Room Air 08/27/17 08/27/17 08/27/17 08/27/17 01:00 02:00 02:23 03:00 Pulse 73 69 92 Resp 17 20 20 B/P (MAP) 105/63 (77) 102/65 (77) 102/59 (73) Pulse Ox 98 98 99 94 O2 Delivery Room Air Room Air Room Air Room Air 08/27/17 08/27/17 08/27/17 08/27/17 04:00 04:00 05:00 06:00 Pulse 79 75 66 Resp 13 17 17 B/P (MAP) 93/56 (68) 102/60 (74) 107/67 (80) Pulse Ox 96 93 97 98 O2 Delivery Room Air Room Air Room Air Room Air 08/27/17 08/27/17 08/27/17 08/27/17 07:00 07:00 08:00 08:00 Temp 99.3 Pulse 67 67 77 Resp 24 20 B/P (MAP) 101/66 (78) 104/68 (80) Pulse Ox 97 97 O2 Delivery Room Air Room Air Room Air 08/27/17 08/27/17 08/27/17 08/27/17 09:00 09:25 10:00 12:00 Temp 99.3 Pulse 70 65 80 Resp 21 20 20 B/P (MAP) 121/69 (86) 126/65 (85) 140/67 (91) Pulse Ox 99 97 100 100 O2 Delivery Room Air Room Air Room Air Room Air Capillary Refill : Less Than 3 Seconds General Appearance: WD/WN, no apparent distress HEENT: PERRL/EOMI Neck: non-tender, supple Respiratory: chest non-tender, normal breath sounds, no respiratory distress, no accessory muscle use Cardiovascular: normal peripheral pulses, regular rate, rhythm, no edema, no murmur Gastrointestinal: normal bowel sounds, non tender, soft, no organomegaly, No guarding, No rebound, No mass Back: vertebral tenderness (lumbar) Extremities: normal range of motion, non-tender, normal inspection, no pedal edema, no calf tenderness, normal capillary refill 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, no motor/sensory deficits, alert, normal mood/affect, oriented x 3 Skin: normal color, warm/dry Lymphatic: no adenopathy Clinical Quality Measures DVT/VTE Risk/Contraindication: Risk Factor Score Per Nursin RFS Level Per Nursing on Admit: 4+=Very High Copy Copies To 1: CHRISTIAN THOMAS MD Assessment/Plan Assessment/Plan Plan 61 yo F admitted for altered mental status and severe Hyponatremia Plan Altered Mental Status: Improving this AM, most likely 2/2 hyponatremia Severe Hyponatremia - Start NS, continue to monitor sodium levels q4hrs - Monitor for any mental status changes Hypokalemia: Resolved this AM Elevated LFTs - Liver US pending, patient denies any pain Hypoalbuminemia - Maximize nutrition UTI - Culture pending, continue Rocephin Normocytic anemia: Continue to monitor Tobacco Abuse - Discussed the need for cessation FEN: Reg diet DVT PPX: Lovenox Dispo: Admit patient to ICU for severe hyponatremia SORAIDA ANSARI MD Aug 26, 2017 11:16
[2017-08-26 12:29] LABS: ANION GAP 8 MMOL/L (5-14); BLOOD UREA NITROGEN 52 MG/DL (7-18); BUN/CREATININE RATIO 56; CALCIUM 8.5 MG/DL (8.5-10.1); CARBON DIOXIDE 19 MMOL/L (21-32); CHLORIDE 101 MMOL/L (98-107); CREATININE SERUM 0.93 MG/DL (0.60-1.30); GFR ESTIMATED > 60; GLUCOSE 136 MG/DL (70-105); MAGNESIUM 2.3 MG/DL (1.8-2.4); POTASSIUM 3.2 MMOL/L (3.6-5.0); SODIUM 128 MMOL/L (135-145)
[2017-08-26] MEDS: IBUPROFEN 600 MG (MOTRIN) TAB PO SCH ×2 (12:50→18:32)
[2017-08-26] MEDS: NS IV 1000 ML 1,000 ML IV SCH ×2 (12:51→22:26)
--- NOTE | 2017-08-26 14:25 | Diagnostic Imaging Report ---
PROCEDURE: US Abdomen, limited. TECHNIQUE: Multiple real-time grayscale images were obtained over the abdomen in various projections. INDICATION: Elevated LFTs. FINDINGS: The visualized portions of the pancreas appear unremarkable. The liver is fairly homogeneous with no focal lesion with prominent intrahepatic biliary dilatation. Hepatopetal flow in the portal vein is seen. The gallbladder has been surgically removed. The CBD is 1.4 cm in caliber. The right kidney is 9 cm in length. There is minimal pelvicaliectasis. No fluid collection in the upper right abdomen seen. IMPRESSION: Significant dilatation of the intra and extrahepatic bile ducts. Further evaluation with MRCP or pancreatic mass protocol CT scan is recommended. Dictated by: Dictated on workstation # [id number]
[2017-08-26 17:04] LABS: ANION GAP 7 MMOL/L (5-14); BLOOD UREA NITROGEN 48 MG/DL (7-18); BUN/CREATININE RATIO 59; CALCIUM 8.4 MG/DL (8.5-10.1); CARBON DIOXIDE 19 MMOL/L (21-32); CHLORIDE 105 MMOL/L (98-107); CREATININE SERUM 0.82 MG/DL (0.60-1.30); GFR ESTIMATED > 60; GLUCOSE 122 MG/DL (70-105); MAGNESIUM 2.1 MG/DL (1.8-2.4); POTASSIUM 3.2 MMOL/L (3.6-5.0); SODIUM 131 MMOL/L (135-145)
[2017-08-26] MEDS ORDERED: KCL 20 MEQ TAB (K-DUR) PO NR ×2 (18:00→22:00)
[2017-08-26] MEDS: CALCIUM CARBONATE 500 MG (TUMS) TAB.CHEW PO PRN ×2 (18:33→22:26)
[2017-08-26 20:42] LABS: ANION GAP 10 MMOL/L (5-14); BLOOD UREA NITROGEN 45 MG/DL (7-18); BUN/CREATININE RATIO 55; CALCIUM 8.6 MG/DL (8.5-10.1); CARBON DIOXIDE 16 MMOL/L (21-32); CHLORIDE 106 MMOL/L (98-107); CREATININE SERUM 0.82 MG/DL (0.60-1.30); GFR ESTIMATED > 60; GLUCOSE 114 MG/DL (70-105); POTASSIUM 3.4 MMOL/L (3.6-5.0); SODIUM 132 MMOL/L (135-145)
[2017-08-27] VITALS (14 sets, daily range): BP systolic 92–140; BP diastolic 56–72
[2017-08-27] MEDS: IBUPROFEN 600 MG (MOTRIN) TAB PO SCH ×5 (00:17→23:00)
[2017-08-27 01:02] LABS: ANION GAP 11 MMOL/L (5-14); BLOOD UREA NITROGEN 39 MG/DL (7-18); BUN/CREATININE RATIO 51; CALCIUM 8.6 MG/DL (8.5-10.1); CARBON DIOXIDE 14 MMOL/L (21-32); CHLORIDE 109 MMOL/L (98-107); CREATININE SERUM 0.76 MG/DL (0.60-1.30); GFR ESTIMATED > 60; GLUCOSE 122 MG/DL (70-105); MAGNESIUM 2.2 MG/DL (1.8-2.4); POTASSIUM 3.7 MMOL/L (3.6-5.0); SODIUM 134 MMOL/L (135-145)
[2017-08-27] MEDS: ACETAMINOPHEN 325 MG TABLET/CAPLET (TYLENOL) PO PRN (01:31)
[2017-08-27] MEDS: RT-ALBUTEROL SULF 2.5 MG/3 ML PRE-MIX VIAL IH SCH ×4 (02:23→20:38)
[2017-08-27 05:19] LABS: BASOPHILS % (AUTO) 0 % (0-10); EOSINOPHILS % (AUTO) 0 % (0-10); LYMPHOCYTES # (AUTO) 0.8 X 10^3 (1.0-4.0); LYMPHOCYTES % (AUTO) 17 % (12-44); MEAN CORPUSCULAR HEMOGLOBIN 33 PG (25-34); MEAN CORPUSCULAR HGB CONC 36 G/DL (32-36); MEAN CORPUSCULAR VOLUME 93 FL (80-99); MONOCYTES # (AUTO) 0.7 X 10^3 (0.0-1.0); MONOCYTES % (AUTO) 14 % (0-12); NEUTROPHILS # (AUTO) 3.3 X 10^3 (1.8-7.8); NEUTROPHILS % (AUTO) 69 % (42-75); PLATELET COUNT 295 10^3/uL (130-400); RED CELL DISTRIBUTION WIDTH 11.6 % (10.0-14.5); WHITE BLOOD COUNT 4.8 10^3/uL (4.3-11.0)
[2017-08-27 05:34] LABS: ANION GAP 10 MMOL/L (5-14); BLOOD UREA NITROGEN 36 MG/DL (7-18); BUN/CREATININE RATIO 49; CALCIUM 8.5 MG/DL (8.5-10.1); CARBON DIOXIDE 13 MMOL/L (21-32); CHLORIDE 113 MMOL/L (98-107); CREATININE SERUM 0.73 MG/DL (0.60-1.30); GFR ESTIMATED > 60; GLUCOSE 121 MG/DL (70-105); PHOSPHORUS 1.4 MG/DL (2.3-4.7); POTASSIUM 4.1 MMOL/L (3.6-5.0); SODIUM 136 MMOL/L (135-145)
[2017-08-27] MEDS: POTASSIUM CL 10MEQ/50ML IVPB 50 ML IV SCH (05:53)
[2017-08-27] MEDS: MAGNESIUM 1 GM/100 ML IVPB 100 ML IV SCH (05:53)
[2017-08-27] MEDS: KCL 20 MEQ TAB (K-DUR) PO SCH (05:54)
[2017-08-27] MEDS: CATHETER FLUSH 10 ML SYR IV SCH ×3 (05:59→22:16)
[2017-08-27] MEDS ORDERED: SODIUM BICARB 8.4% 50 MEQ/50 ML (ABBOTT) SYR IV NR (07:15)
[2017-08-27] MEDS ORDERED: SODIUM PHOSPHATE INJ 30 MM in NS (IVPB) 250 ML IV NR (07:15)
--- NOTE | 2017-08-27 07:27 | Pulmonary Progress Note ---
Subjective Time Seen by Provider: 07:25 Subjective/Events-last exam No complications noted. Will transfer pt to 4th floor. Exam Exam Vital Signs Date Time Temp Pulse Resp B/P (MAP) Pulse Ox O2 Delivery O2 Flow Rate FiO2 08/27/17 06:00 66 17 107/67 (80) 98 Room Air 08/27/17 05:00 75 17 102/60 (74) 97 Room Air 08/27/17 04:00 93 Room Air 08/27/17 04:00 79 13 93/56 (68) 96 Room Air 08/27/17 03:00 92 20 102/59 (73) 94 Room Air 08/27/17 02:23 99 Room Air 08/27/17 02:00 69 20 102/65 (77) 98 Room Air 08/27/17 01:00 73 17 105/63 (77) 98 Room Air 08/27/17 01:00 73 08/27/17 00:00 93 Room Air 08/27/17 00:00 97.8 08/27/17 00:00 77 23 92/64 (73) 97 Room Air 08/26/17 23:00 80 23 97/58 (71) 97 Room Air 08/26/17 22:00 90 18 118/63 (81) 100 Room Air 08/26/17 21:00 80 15 102/59 (73) 98 Room Air 08/26/17 20:00 93 Room Air 08/26/17 20:00 99.0 08/26/17 20:00 86 22 104/65 (78) 99 Room Air 08/26/17 19:10 98 Room Air 08/26/17 19:00 87 19 128/72 (90) 98 Room Air 08/26/17 19:00 91 08/26/17 18:00 77 13 99/59 (72) 98 Room Air 08/26/17 17:00 71 21 100/57 (71) 99 Room Air 08/26/17 16:00 93 Room Air 08/26/17 16:00 79 9 92/54 (67) 99 Room Air 08/26/17 15:00 89 12 107/56 (73) 100 Room Air 08/26/17 14:11 100 Room Air 08/26/17 14:00 70 12 95/58 (70) 100 Room Air 08/26/17 13:00 71 21 97/55 (69) 97 Room Air 08/26/17 12:55 69 08/26/17 12:00 93 Room Air 08/26/17 12:00 77 13 102/69 (80) 98 Room Air 08/26/17 12:00 97.7 08/26/17 11:00 80 13 89/53 (65) 96 Room Air 08/26/17 10:13 98 Room Air 08/26/17 10:00 73 15 92/61 (71) 96 Room Air 08/26/17 09:00 98.4 08/26/17 09:00 75 14 99/64 (76) 99 Room Air 08/26/17 08:05 93 Room Air 08/26/17 08:00 86 17 87/40 (56) 94 Room Air I & O 08/27/17 07:00 Intake Total 1625 ml Output Total 2900 ml Balance -1275 ml General Appearance: No Apparent Distress, WD/WN HEENT: Normal ENT Inspection Neck: Normal Inspection Respiratory: Decreased Breath Sounds (distant) Cardiovascular: Regular Rate, Rhythm, No Edema, No Gallop, No JVD, No Murmur, Normal Peripheral Pulses Capillary Refill: Less Than 3 Seconds Gastrointestinal: normal bowel sounds, non tender, soft Extremity: Normal Capillary Refill, Normal Inspection, Non Tender Neurologic/Psychiatric: Other (mild confusion) Skin: Normal Color, Warm/Dry Lymphatic: No Adenopathy Results Lab Laboratory Tests 08/25/17 15:49 08/25/17 19:40 08/26/17 00:20 08/26/17 05:05 08/26/17 08:27 08/26/17 12:05 08/26/17 16:41 08/26/17 20:25 08/27/17 00:40 08/27/17 04:55 Assessment/Plan Assessment/Plan -Hyponatremia much improved -change IVF to LR UTI -GNR in urine -will resume Rocephin N/v/D - without abdominal pain monitor -Check Cdiff Elevated LFTs -hepatitis panel - RUQ US -- recommends MRCP - will place order Metabolic acidosis nonanion gap -2 amps of NaHC03 -monitor Tobacco dependance -education Pt is doing better will transfer to 4th floor. I am going to sign off please call with any questions. will have [facility] follow MRCP and further management. 233 Clinical Quality Measures DVT/VTE Risk/Contraindication: Risk Factor Score Per Nursin RFS Level Per Nursing on Admit: 4+=Very High RAZ BURTON DO Aug 27, 2017 07:27
[2017-08-27] MEDS ORDERED: LACTATED RINGERS 1,000 ML IV SCH (07:30)
[2017-08-27] MEDS: NICOTINE 21 MG (NICODERM) PATCH TD SCH (07:54)
[2017-08-27] MEDS: NICOTINE PATCH REMOVAL TP SCH (07:55)
[2017-08-27] MEDS: cefTRIAXone INJECTION 1,000 MG in NS (IVPB) 50 ML IV SCH (07:55)
--- NOTE | 2017-08-27 08:02 | Diagnostic Imaging Report ---
Portable upright radiograph of the chest. INDICATION: Hyponatremia. COMPARISON: 08/26/2017. FINDINGS: The heart size is normal. There is prominence of interstitial markings, probably chronic. There is no effusion or pneumothorax. Mediastinum and jackie appear unremarkable. IMPRESSION: Likely chronic interstitial prominence. No focal infiltrate. Dictated by: Dictated on workstation # [id number]
[2017-08-27 08:33] LABS: ANION GAP 10 MMOL/L (5-14); BLOOD UREA NITROGEN 33 MG/DL (7-18); BUN/CREATININE RATIO 48; CALCIUM 8.4 MG/DL (8.5-10.1); CARBON DIOXIDE 18 MMOL/L (21-32); CHLORIDE 112 MMOL/L (98-107); CREATININE SERUM 0.69 MG/DL (0.60-1.30); GFR ESTIMATED > 60; GLUCOSE 109 MG/DL (70-105); MAGNESIUM 1.8 MG/DL (1.8-2.4); POTASSIUM 4.3 MMOL/L (3.6-5.0); SODIUM 140 MMOL/L (135-145)
--- NOTE | 2017-08-27 11:50 | Progress Note (SOAP) ---
YASSINEKHAI Zaman STUDENT 08/27/17 1150: Subjective Subjective/Events-last exam Per Dr. Rodriguez's note on 08/26/17: 61 yo F that was brought to hospital by her family due to increasing confusion over the last few weeks. Patient states this AM that she remembers being brought her but she felt very weird. She has not been eating or drinking normally. Denies any pain, fever or chills. + frequent urination. Today 08/27/17: Patient is in pain today due to her fall, arthritis, and polio as a child. She said that she has been taking pain medications since age 7 y/o. She said today, she is feeling shakes and slight agitation without her medications. She mostly experiences pain in her feet and back. Her pain is an 8 of 10 on the pain scale. She does have some nausea today, but no vomiting. She is experiencing diarrhea. This is the first time that she has not been vomiting after eating in a few months. Review of Systems Date Seen by Provider: Aug 27, 2017 Time Seen by Provider: 08:30 General: Fatigue, Malaise HEENT: No Head Aches, No Visual Changes Pulmonary: No Dyspnea, No Cough Cardiovascular: No: Chest Pain, Palpitations, Edema Gastrointestinal: Nausea, Diarrhea, No: Vomiting, Abdominal Pain, Constipation Genitourinary: No Dysuria, Frequency Musculoskeletal: back pain, leg pain, foot pain Neurological: No: Change in speech, Confusion Objective Exam Last Set of Vital Signs Vital Signs Date Time Temp Pulse Resp B/P (MAP) Pulse Ox O2 Delivery O2 Flow Rate FiO2 08/27/17 10:00 65 20 126/65 (85) 100 Room Air 08/27/17 08:00 99.3 08/25/17 20:06 21 Capillary Refill : Less Than 3 Seconds I&O Intake and Output 08/27/17 00:00 Intake Total 3530 ml Output Total 4500 ml Balance -970 ml Intake Oral 525 ml IV Total 3005 ml Output Urine Total 4500 ml # Bowel Movements 4 General: Alert, Oriented X3, Cooperative Neck: Supple Lungs: Clear to Auscultation, Normal Air Movement Heart: Regular Rate, No Murmurs Abdomen: Normal Bowel Sounds, Soft, No Tenderness Extremities: No Edema, No Tenderness/Swelling Skin: No Rashes, No Breakdown, Other (bruising on low back from fall) Psych/Mental Status: Mental Status NL, Mood NL Results/Procedures Lab Laboratory Tests Test 08/25/17 15:49 08/25/17 16:15 08/25/17 19:40 08/26/17 00:20 Range/Units White Blood Count 8.0 4.3-11.0 10^3/uL Red Blood Count 3.50 L 4.35-5.85 10^6/uL Hemoglobin 11.9 11.5-16.0 G/DL Hematocrit 32 L 35-52 % Mean Corpuscular Volume 91 80-99 FL Mean Corpuscular Hemoglobin 34 25-34 PG Mean Corpuscular Hemoglobin Concent 37 H 32-36 G/DL Red Cell Distribution Width 11.1 10.0-14.5 % Platelet Count 258 130-400 10^3/uL Mean Platelet Volume 9.4 7.4-10.4 FL Neutrophils (%) (Auto) 82 H 42-75 % Lymphocytes (%) (Auto) 10 L 12-44 % Monocytes (%) (Auto) 8 0-12 % Eosinophils (%) (Auto) 0 0-10 % Basophils (%) (Auto) 0 0-10 % Neutrophils # (Auto) 6.5 1.8-7.8 X 10^3 Lymphocytes # (Auto) 0.8 L 1.0-4.0 X 10^3 Monocytes # (Auto) 0.6 0.0-1.0 X 10^3 Eosinophils # (Auto) 0.0 0.0-0.3 10^3/uL Basophils # (Auto) 0.0 0.0-0.1 10^3/uL Sodium Level 113 *L 119 *L 122 *L 135-145 MMOL/L Potassium Level 2.4 *L 2.2 *L 2.6 L 3.6-5.0 MMOL/L Chloride Level 75 L 85 L 89 L 98-107 MMOL/L Carbon Dioxide Level 22 20 L 18 L 21-32 MMOL/L Anion Gap 16 H 14 15 H 5-14 MMOL/L Blood Urea Nitrogen 81 H 75 H 70 H 7-18 MG/DL Creatinine 1.82 H 1.52 H 1.25 0.60-1.30 MG/DL Estimat Glomerular Filtration Rate 28 35 43 BUN/Creatinine Ratio 45 49 56 Glucose Level 85 79 68 L 70-105 MG/DL Calcium Level 8.4 L 7.7 L 7.7 L 8.5-10.1 MG/DL Total Bilirubin 0.3 0.1-1.0 MG/DL Aspartate Amino Transf (AST/SGOT) 121 H 5-34 U/L Alanine Aminotransferase (ALT/SGPT) 62 H 0-55 U/L Alkaline Phosphatase 119 40-136 U/L Total Protein 6.9 6.4-8.2 GM/DL Albumin 3.2 3.2-4.5 GM/DL Urine Color YELLOW Urine Clarity VERY CLOUDY H Urine pH 6 5-9 Urine Specific [place] 1.010 L 1.016-1.022 Urine Protein 2+ H NEGATIVE Urine Glucose (UA) NEGATIVE NEGATIVE Urine Ketones NEGATIVE NEGATIVE Urine Nitrite NEGATIVE NEGATIVE Urine Bilirubin NEGATIVE NEGATIVE Urine Urobilinogen NORMAL NORMAL MG/DL Urine Leukocyte Esterase 3+ H NEGATIVE Urine RBC (Auto) 5+ H NEGATIVE Urine RBC 10-25 H /HPF Urine WBC TNTC H /HPF Urine Squamous Epithelial Cells 0-2 /HPF Urine Crystals NONE /LPF Urine Bacteria LARGE H /HPF Urine Casts NONE /LPF Urine Mucus NEGATIVE /LPF Urine Culture Indicated YES Lactic Acid Level 0.63 0.50-2.00 MMOL/L Magnesium Level 1.7 L 1.8-2.4 MG/DL Test 08/26/17 04:21 08/26/17 05:05 08/26/17 08:27 08/26/17 09:00 Range/Units Glucometer 122 H 93 70-110 MG/DL White Blood Count 6.4 4.3-11.0 10^3/uL Red Blood Count 2.86 L 4.35-5.85 10^6/uL Hemoglobin 9.7 L 11.5-16.0 G/DL Hematocrit 27 L 35-52 % Mean Corpuscular Volume 93 80-99 FL Mean Corpuscular Hemoglobin 34 25-34 PG Mean Corpuscular Hemoglobin Concent 37 H 32-36 G/DL Red Cell Distribution Width 11.2 10.0-14.5 % Platelet Count 268 130-400 10^3/uL Mean Platelet Volume 9.2 7.4-10.4 FL Neutrophils (%) (Auto) 80 H 42-75 % Lymphocytes (%) (Auto) 10 L 12-44 % Monocytes (%) (Auto) 11 0-12 % Eosinophils (%) (Auto) 0 0-10 % Basophils (%) (Auto) 0 0-10 % Neutrophils # (Auto) 5.1 1.8-7.8 X 10^3 Lymphocytes # (Auto) 0.6 L 1.0-4.0 X 10^3 Monocytes # (Auto) 0.7 0.0-1.0 X 10^3 Eosinophils # (Auto) 0.0 0.0-0.3 10^3/uL Basophils # (Auto) 0.0 0.0-0.1 10^3/uL Sodium Level 124 *L 125 *L 135-145 MMOL/L Potassium Level 3.5 L 4.3 3.6-5.0 MMOL/L Chloride Level 98 102 98-107 MMOL/L Carbon Dioxide Level 15 L 15 L 21-32 MMOL/L Anion Gap 11 8 5-14 MMOL/L Blood Urea Nitrogen 62 H 56 H 7-18 MG/DL Creatinine 1.05 0.99 0.60-1.30 MG/DL Estimat Glomerular Filtration Rate 53 57 BUN/Creatinine Ratio 59 57 Glucose Level 118 H 103 70-105 MG/DL Calcium Level 7.8 L 8.3 L 8.5-10.1 MG/DL Phosphorus Level 2.4 2.3-4.7 MG/DL Magnesium Level 2.6 H 2.5 H 1.8-2.4 MG/DL Total Bilirubin 0.2 0.1-1.0 MG/DL Aspartate Amino Transf (AST/SGOT) 87 H 5-34 U/L Alanine Aminotransferase (ALT/SGPT) 53 0-55 U/L Alkaline Phosphatase 164 H 40-136 U/L Total Protein 5.3 L 6.4-8.2 GM/DL Albumin 2.5 L 3.2-4.5 GM/DL Hepatitis A IgM Antibody Non-Reactive Non-Reactive Hepatitis B Surface Antigen Non-Reactive Non-Reactive Hepatitis B Core IgM Antibody Non-Reactive Non-Reactive Hepatitis C Antibody Non-Reactive Non-Reactive Test 08/26/17 12:05 08/26/17 16:41 08/26/17 17:36 08/26/17 20:25 Range/Units Sodium Level 128 L 131 L 132 L 135-145 MMOL/L Potassium Level 3.2 L 3.2 L 3.4 L 3.6-5.0 MMOL/L Chloride Level 101 105 106 98-107 MMOL/L Carbon Dioxide Level 19 L 19 L 16 L 21-32 MMOL/L Anion Gap 8 7 10 5-14 MMOL/L Blood Urea Nitrogen 52 H 48 H 45 H 7-18 MG/DL Creatinine 0.93 0.82 0.82 0.60-1.30 MG/DL Estimat Glomerular Filtration Rate > 60 > 60 > 60 BUN/Creatinine Ratio 56 59 55 Glucose Level 136 H 122 H 114 H 70-105 MG/DL Lactic Acid Level 1.09 0.50-2.00 MMOL/L Calcium Level 8.5 8.4 L 8.6 8.5-10.1 MG/DL Magnesium Level 2.3 2.1 2.0 1.8-2.4 MG/DL Glucometer 112 H 70-110 MG/DL Test 08/27/17 00:40 08/27/17 04:55 08/27/17 08:12 Range/Units Sodium Level 134 L 136 140 135-145 MMOL/L Potassium Level 3.7 4.1 4.3 3.6-5.0 MMOL/L Chloride Level 109 H 113 H 112 H 98-107 MMOL/L Carbon Dioxide Level 14 L 13 L 18 L 21-32 MMOL/L Anion Gap 11 10 10 5-14 MMOL/L Blood Urea Nitrogen 39 H 36 H 33 H 7-18 MG/DL Creatinine 0.76 0.73 0.69 0.60-1.30 MG/DL Estimat Glomerular Filtration Rate > 60 > 60 > 60 BUN/Creatinine Ratio 51 49 48 Glucose Level 122 H 121 H 109 H 70-105 MG/DL Calcium Level 8.6 8.5 8.4 L 8.5-10.1 MG/DL Magnesium Level 2.2 2.0 1.8 1.8-2.4 MG/DL White Blood Count 4.8 4.3-11.0 10^3/uL Red Blood Count 2.90 L 4.35-5.85 10^6/uL Hemoglobin 9.7 L 11.5-16.0 G/DL Hematocrit 27 L 35-52 % Mean Corpuscular Volume 93 80-99 FL Mean Corpuscular Hemoglobin 33 25-34 PG Mean Corpuscular Hemoglobin Concent 36 32-36 G/DL Red Cell Distribution Width 11.6 10.0-14.5 % Platelet Count 295 130-400 10^3/uL Mean Platelet Volume 9.0 7.4-10.4 FL Neutrophils (%) (Auto) 69 42-75 % Lymphocytes (%) (Auto) 17 12-44 % Monocytes (%) (Auto) 14 H 0-12 % Eosinophils (%) (Auto) 0 0-10 % Basophils (%) (Auto) 0 0-10 % Neutrophils # (Auto) 3.3 1.8-7.8 X 10^3 Lymphocytes # (Auto) 0.8 L 1.0-4.0 X 10^3 Monocytes # (Auto) 0.7 0.0-1.0 X 10^3 Eosinophils # (Auto) 0.0 0.0-0.3 10^3/uL Basophils # (Auto) 0.0 0.0-0.1 10^3/uL Phosphorus Level 1.4 L 2.3-4.7 MG/DL Lactic Acid Level 0.96 0.50-2.00 MMOL/L Microbiology 08/25/17 Urine Culture - Final, Complete Escherichia Coli Radiology Chest x-ray on 08/25/17: interpreted by Dr. Gresham IMPRESSION: Likely chronic interstitial thickening with no focal infiltrates. Chest x-ray on 08/26/17: interpreted by Dr. Akins IMPRESSION: no significant change Abdominal US on 08/26/17: interpreted by Dr. Gresham IMPRESSION: Significant dilatation of the intra and extrahepatic bile ducts. Further evaluation with MRCP or pancreatic mass protocol CT scan is recommended. Chest x-ray on 08/27/17: interpreted by Dr. Gresham IMPRESSION: Likely chronic interstitial prominence. No focal infiltrate Assessment/Plan Assessment/Plan Admission Dx 1. Altered Mental Status 2. Severe Hyponatremia 3. Hypokalemia 4. Elevated LFTs 5. Hypoalbuminemia 6. UTI 7. Normocytic anemia 8. Tobacco Abuse Plan 61 yo F admitted for altered mental status and severe Hyponatremia 1. Altered Mental Status-resolved 2. Severe Hyponatremia-resolved, D/C fluids and reassess for stability on oral fluids 3. Hypokalemia-resolved 4. Elevated LFTs-trending downward, will reassess 5. Hypoalbuminemia-will reassess 6. UTI-continue antibiotics, oral fluids 7. Normocytic anemia- assess iron levels, begin iron if low, continue monitoring anemia 8. Tobacco Abuse-discussed lifestyle modification and cessation Clinical Quality Measures DVT/VTE Risk/Contraindication: Risk Factor Score Per Nursin RFS Level Per Nursing on Admit: 4+=Very High SORAIDA RODRIGUEZ MD 08/27/17 1451: Assessment/Plan Assessment/Plan Plan 61 yo F admitted with Altered mental status and found to have severe Hyponatremia Alerted mental status: Resolved this AM, at baseline Hyponatremia: Resolved - Stopped IVFs, repeat BMP in AM Elevated LFTs - Liver US yesterday recommended MRCP which is pending - Acute Hepatitis panel Neg UTI: Ecoli - Continue Rocephin, plan to treat 5 days Hypokalemia: Resolved Hypoalbuminemia - Dietary supplementation Normocytic Anemia - Likely 2/2 to nutritional - Iron/folate studies pending Diarrhea - C diff pending Chronic Pain - Restart home Hydrocodone FEN: Reg diet DVT PPX: Lovenox Dispo: Transfer to Med/Surg floor KHAI METZGER STUDENT Aug 27, 2017 11:50 SORAIDA RODRIGUEZ MD Aug 27, 2017 14:51
[2017-08-27] MEDS: HYDROcodone/APAP 7.5 MG/325 MG (LORTAB, LORCET PLUS) TABLET PO PRN ×3 (13:18→22:56)
--- NOTE | 2017-08-27 13:23 | Diagnostic Imaging Report ---
PROCEDURE: MR imaging cholangiography-pancreatography. TECHNIQUE: Multiplanar imaging of the abdomen was performed on a 1.5 Rita magnet without contrast. 3D reconstructions were made for the MRCP INDICATION: Abdominal pain with nausea. History of previous cholecystectomy. FINDINGS: The study is limited due to respiratory motion. There are bilateral pleural effusions with bilateral basilar atelectasis of the lungs. MRCP shows distended common bile duct and intrahepatic radicles with common bile duct measuring 18 mm. The duct is dilated to the ampulla of Vater. No definite filling defects are demonstrated. The pancreatic duct is visualized measuring just under 3 mm in diameter. Findings are consistent with some fatty change of the liver with hepatomegaly. The spleen is not enlarged. No pancreatic masses are seen. No periportal adenopathy demonstrated. Bowel appears normal where visualized. Kidneys show no evidence of obstruction. IMPRESSION: 1. Distended intrahepatic radicles and common bile duct with common duct measuring 17 mm. Duct is distended to the ampulla of Vater with no filling defects or masses demonstrated. Distal stenosis or tiny distal common duct stone would be in the differential. 2. Pancreatic duct is not significantly distended. 3. Bilateral pleural effusions with interstitial infiltrates and some basilar atelectasis does raise question of possible congestive failure. Dictated by: Dictated on workstation # [id number]
[2017-08-27] MEDS ORDERED: ENOXAPARIN 30 MG/0.3 ML (LOVENOX) SYR SC SCH (15:00)
[2017-08-27] MEDS: CALCIUM CARBONATE 500 MG (TUMS) TAB.CHEW PO PRN (22:56)
[2017-08-28] VITALS: BP 128/62
[2017-08-28] MEDS: RT-ALBUTEROL SULF 2.5 MG/3 ML PRE-MIX VIAL IH SCH ×2 (03:07→06:47)
[2017-08-28 04:00] VITALS: BP 121/67
[2017-08-28 06:00] LABS: BASOPHILS % (AUTO) 0 % (0-10); EOSINOPHILS # (AUTO) 0.1 10^3/uL (0.0-0.3); EOSINOPHILS % (AUTO) 1 % (0-10); LYMPHOCYTES # (AUTO) 1.3 X 10^3 (1.0-4.0); LYMPHOCYTES % (AUTO) 21 % (12-44); MEAN CORPUSCULAR HEMOGLOBIN 33 PG (25-34); MEAN CORPUSCULAR HGB CONC 35 G/DL (32-36); MEAN CORPUSCULAR VOLUME 94 FL (80-99); MEAN PLATELET VOLUME 8.7 FL (7.4-10.4); MONOCYTES # (AUTO) 0.8 X 10^3 (0.0-1.0); MONOCYTES % (AUTO) 14 % (0-12); NEUTROPHILS # (AUTO) 3.8 X 10^3 (1.8-7.8); NEUTROPHILS % (AUTO) 63 % (42-75); PLATELET COUNT 326 10^3/uL (130-400); RED BLOOD COUNT 2.89 10^6/uL (4.35-5.85); RED CELL DISTRIBUTION WIDTH 12.2 % (10.0-14.5)
[2017-08-28 06:35] LABS: ALANINE AMINOTRANSFERASE 52 U/L (0-55); ALBUMIN 2.7 GM/DL (3.2-4.5); ANION GAP 11 MMOL/L (5-14); ASPARTATE AMINO TRANSFERASE 44 U/L (5-34); BILIRUBIN,TOTAL 0.3 MG/DL (0.1-1.0); BLOOD UREA NITROGEN 21 MG/DL (7-18); BUN/CREATININE RATIO 29; CALCIUM 8.9 MG/DL (8.5-10.1); CARBON DIOXIDE 17 MMOL/L (21-32); CHLORIDE 110 MMOL/L (98-107); CREATININE SERUM 0.72 MG/DL (0.60-1.30); GFR ESTIMATED > 60; GLUCOSE 106 MG/DL (70-105); POTASSIUM 3.2 MMOL/L (3.6-5.0); SODIUM 138 MMOL/L (135-145); TOTAL PROTEIN 5.6 GM/DL (6.4-8.2)
[2017-08-28] MEDS: cefTRIAXone INJECTION 1,000 MG in NS (IVPB) 50 ML IV SCH (06:43)
[2017-08-28] MEDS: CATHETER FLUSH 10 ML SYR IV SCH (06:43)
[2017-08-28] MEDS: IBUPROFEN 600 MG (MOTRIN) TAB PO SCH (06:43)
[2017-08-28] MEDS: HYDROcodone/APAP 7.5 MG/325 MG (LORTAB, LORCET PLUS) TABLET PO PRN ×2 (06:43→11:20)
[2017-08-28 08:00] VITALS: BP 122/60
[2017-08-28] MEDS: NICOTINE PATCH REMOVAL TP SCH (08:57)
[2017-08-28] MEDS: NICOTINE 21 MG (NICODERM) PATCH TD SCH (08:57)
--- NOTE | 2017-08-28 09:45 | Discharge Summary ---
Diagnosis/Chief Complaint Date of Admission Aug 25, 2017 at 5:21 pm Date of Discharge Chief Complaint/HPI Chief Complaint/HPI 61 yo F that was brought to hospital by her family due to increasing confusion over the last few weeks. Patient states this AM that she remembers being brought her but she felt very weird. She has not been eating or drinking normally. Denies any pain, fever or chills. + frequent urination. Discharge Summary-Simple/Stand Consultations Discharge Physical Examination Allergies: Coded Allergies: morphine (Verified Allergy, Unknown, 01/01/09) Vitals & I&Os Vital Sign - Last 12Hours Date Time Temp Pulse Resp B/P (MAP) Pulse Ox O2 Delivery O2 Flow Rate FiO2 08/28/17 08:00 99.3 96 20 122/60 (80) 96 Room Air 08/25/17 20:06 21 Intake and Output 08/28/17 00:00 Intake Total 2170 ml Balance 2170 ml Hospital Course See final discharge diagnosis. Radiology Reviewed Chest x-ray on 08/25/17: interpreted by Dr. Gresham IMPRESSION: Likely chronic interstitial thickening with no focal infiltrates. Chest x-ray on 08/26/17: interpreted by Dr. Akins IMPRESSION: no significant change Abdominal US on 08/26/17: interpreted by Dr. Gresham IMPRESSION: Significant dilatation of the intra and extrahepatic bile ducts. Further evaluation with MRCP or pancreatic mass protocol CT scan is recommended. Chest x-ray on 08/27/17: interpreted by Dr. Gresham IMPRESSION: Likely chronic interstitial prominence. No focal infiltrate Discharge Instructions to patient/family Please see electronic discharge instructions given to patient. Discharge Medications Reviewed and agree with Discharge Medication list on patient's Discharge Instruction sheet Clinical Quality Measures DVT/VTE Risk/Contraindication: Risk Factor Score Per Nursin RFS Level Per Nursing on Admit: 4+=Very High SORAIDA RODRIGUEZ MD Aug 28, 2017 9:45 am
[2017-08-28] MEDS ORDERED: CEPH-507 PO (10:28)
--- NOTE | 2017-08-28 10:30 | Discharge Instructions ---
Discharge [facility] Discharge Medications New, Converted or Re-Newed RX: Transmitted to Pharmacy New Medications: Cephalexin (Keflex) 500 Mg Capsule 500 MG PO BID, #8 CAP Continued Medications: Hydrocodone/Acetaminophen (Hydrocodon-Acetaminoph 7.5-325) 1 Each Tablet 1 TAB PO Q4H PRN for PAIN-MODERATE, TAB Ibuprofen (Advil) 200 Mg Tablet 400 MG PO Q8H PRN for PAIN-MILD, TAB Sertraline HCl (Sertraline HCl) 50 Mg Tablet 50 MG PO DAILY, TAB Discontinued Medications: Atenolol (Atenolol) 50 Mg Tablet 50 MG PO DAILY, TAB Hydrochlorothiazide (Hydrochlorothiazide) 25 Mg Tablet 25 MG PO DAILY, TAB Patient Instructions Goal/Follow Up Appt: Jerica will call on Wednesday with appt with Dr Thomas Patient Instructions: - Make sure to complete your antibiotics - Focus on healthy protein in your diet Activity & Diet Discharge Diet: No Restrictions Activity as Tolerated: Yes Copy Copies To 1: CHRISTIAN THOMAS MD, HOLLY R MD Aug 28, 2017 10:30
[2017-08-28 11:30] VITALS: BP 122/60
[2017-08-29 16:21] LABS: %SAT TOTAL IRON BINDING CAPIC 19 % (15-50); TIBC 198 ug/dL (280-380)
[2017-08-30 07:27] LABS: FERRITIN 512.1 ng/mL (15.0-150.0); FOLIC ACID 9.3 ng/mL (1.5-24.0); UIBC 160 ug/dL (55-450)
== END 2017-08-28 11:30 | disposition home or self-care (01) | DRG 641 ==
LOC: EDUNIT# 14:54 → ER 14:56 → ICU 17:21 → 4TH 08-27 13:08
PROVIDERS: ADMIT Family Medicine; ATTEND Family Medicine
DX: E87.1 Hypo-osmolality and hyponatremia (principal); N39.0 Urinary tract infection, site not specified; I95.9 Hypotension, unspecified; E87.6 Hypokalemia; E88.09 Other disorders of plasma-protein metabolism, not elsewhere classified; E87.2 Acidosis; D64.9 Anemia, unspecified; I10 Essential (primary) hypertension; F17.210 Nicotine dependence, cigarettes, uncomplicated; B96.20 Unspecified Escherichia coli [E. coli] as the cause of diseases classified elsewhere
CPT/HCPCS: 36415; 71010; 74181; 76705; 80048; 80053; 80074; 81000; 82607; 82728; 82746; 82962; 83540; 83605; 83735; 84100; 85025; 87077; 87088; 87186; 94640; 94664; 94760; 96365